=== PATIENT | female | born 1940 | race Caucasian/White ===

== ENCOUNTER 2016-06-04 14:36 | Inpatient (IN) | payer MEDICARE ==
[2016-06-04] MEDS ORDERED: ONDANSETRON 4 MG/2 ML VIAL IVP STA (15:01)
--- NOTE | 2016-06-04 15:10 | ED ---
Syncope HPI - General Chief Complaint: Syncope Stated Complaint: Bradycardia Time Seen by Provider: 06/04/16 14:40 Source: family (Son), EMS, RN notes reviewed Mode of arrival: EMS Limitations: altered mental status - History of Present Illness Initial Comments: This patient is a 76-year-old woman who presents to be evaluated after she had an episode in which she became somewhat unresponsive. The patient does appear somewhat confused, and the patient's son does give a lot of the history. He states that they had gone to have a meal at a restaurant. He states that they sat down and then his mother seemed to "blank out" for a period of multiple seconds possibly up to minutes, while EMS was called. She did not really respond to him but was not fully unconscious. When EMS arrived they told the patient's son that the patient's pulse rate was low. The patient subsequently became more alert and responsive but began having nausea and vomiting. Currently she is able to respond to direct questioning and states that she is not having any pain, and that she is not feeling short of breath. She does continue to have some nausea. MD Complaint: other -: minutes(s) Prodromal Symptoms: none -: minutes(s) Witnessed: yes - by bystander Injuries Sustained Associated with Event: None Current Symptoms: nausea Context: at rest - Related Data Home Medications Medication Instructions Recorded Confirmed Atenolol [Tenormin] 50 mg PO DAILY 05/03/16 06/04/16 Atorvastatin [Lipitor] 40 mg PO DAILY 05/03/16 06/04/16 Lisinopril 40 mg PO DAILY 05/03/16 06/04/16 glipiZIDE [Glucotrol] 5 mg PO AC-BID 05/03/16 06/04/16 Aspirin EC [Ecotrin Low Dose] 81 mg PO DAILY 06/04/16 06/04/16 Cyanocobalamin [Vitamin B-12] 500 mcg PO DAILY 06/04/16 06/04/16 Donepezil [Aricept] 10 mg PO HS 06/04/16 06/04/16 Memantine HCl [Namenda Xr] 14 mg PO DAILY 06/04/16 06/04/16 metFORMIN HCL [Glucophage] 1,000 mg PO BID 06/04/16 06/04/16 Allergies Allergy/AdvReac Type Severity Reaction Status Date / Time No Known Allergies Allergy Verified 06/04/16 15:26 Review of Systems ROS Statement: Those systems with pertinent positive or pertinent negative responses have been documented in the HPI. ROS Other: All systems not noted in ROS Statement are negative. Limitations: ROS unobtainable due to patients medical condition Constitutional: Reports: weakness Eyes: Denies: vision change Respiratory: Denies: cough, dyspnea Cardiovascular: Reports: as per HPI, syncope. Denies: chest pain, palpitations , edema Gastrointestinal: Reports: nausea, vomiting. Denies: abdominal pain, diarrhea, hematemesis, melena, hematochezia Musculoskeletal: Denies: back pain Neurological: Reports: weakness (Generalized). Denies: headache Past Medical History Past Medical History: Dementia, Diabetes Mellitus, Hypertension History of Any Multi-Drug Resistant Organisms: None Reported Past Surgical History: No Surgical Hx Reported Past Psychological History: No Psychological Hx Reported Smoking Status: Never smoker Past Alcohol Use History: None Reported Past Drug Use History: None Reported - Past Family History Father History Unknown: Yes Additional Family Medical History / Comment(s): of old age Mother History Unknown: Yes General Exam Limitations: no limitations General appearance: alert Head exam: Present: atraumatic, normocephalic Eye exam: Present: EOMI, other (Pupils are 3 mm bilaterally). Absent: scleral icterus, conjunctival injection ENT exam: Present: mucous membranes dry Neck exam: Present: normal inspection Respiratory exam: Present: rales (Bilateral bases). Absent: respiratory distress, wheezes, rhonchi, stridor Cardiovascular Exam: Present: regular rate, bradycardia (Rate approximate 48 bpm ), normal heart sounds. Absent: systolic murmur, diastolic murmur, rubs, gallop GI/Abdominal exam: Present: soft, diminished bowel sounds. Absent: tenderness, guarding, rebound, mass, pulsatile mass, hernia Extremities exam: Present: normal inspection, normal capillary refill. Absent: pedal edema, calf tenderness Back exam: Absent: CVA tenderness (R), CVA tenderness (L) Neurological exam: Present: alert, oriented X3. Absent: motor sensory deficit Skin exam: Present: warm, dry, intact, normal color. Absent: rash, cyanosis, diaphoretic, erythema, petechiae, pallor, mottled Course Vital Signs 06/04/16 06/04/16 06/04/16 14:47 15:50 16:55 Temperature 96.9 F L Pulse Rate 49 L 47 L 59 L Respiratory 18 18 18 Rate Blood Pressure 139/90 184/58 165/70 O2 Sat by Pulse 96 97 100 Oximetry 06/04/16 17:42 Temperature 97.9 F Pulse Rate 53 L Respiratory 18 Rate Blood Pressure 169/70 O2 Sat by Pulse 98 Oximetry EKG Findings - EKG Results: EKG: interpreted by ERMD, sinus rhythm, normal ST/T EKG shows: bradycardia (Rate approximately 57 bpm) - Blocks, [place], Hypertrophy, ST Abn: QRS axis and voltage: left axis deviation (-30 to -90) Chamber hypertrophy or enlargement: only voltage criteria for left ventricular hypertrophy Medical Decision Making - Lab Data Result diagrams: 06/04/16 15:15 06/04/16 15:15 Lab Results 06/04/16 06/04/16 06/04/16 Range/Units 15:15 15:15 15:15 WBC 6.4 (3.8-10.6) k/uL RBC 4.77 (3.80-5.40) m/uL Hgb 14.2 (11.4-16.0) gm/dL Hct 41.6 (34.0-46.0) % MCV 87.3 (80.0-100.0) fL MCH 29.7 (25.0-35.0) pg MCHC 34.0 (31.0-37.0) g/dL RDW 12.9 (11.5-15.5) % Plt Count 245 (150-450) k/uL Neutrophils % 56 % Lymphocytes % 32 % Monocytes % 4 % Eosinophils % 6 % Basophils % 1 % Neutrophils # 3.6 (1.3-7.7) k/uL Lymphocytes # 2.0 (1.0-4.8) k/uL Monocytes # 0.3 (0-1.0) k/uL Eosinophils # 0.4 (0-0.7) k/uL Basophils # 0.0 (0-0.2) k/uL Sodium 139 (137-145) mmol/L Potassium 3.8 (3.5-5.1) mmol/L Chloride 104 (98-107) mmol/L Carbon Dioxide 25 (22-30) mmol/L Anion Gap 10 mmol/L BUN 14 (7-17) mg/dL Creatinine 0.55 (0.52-1.04) mg/dL Est GFR (MDRD) Af Amer >60 (>60 ml/min/1.73 sqM) Est GFR (MDRD) Non-Af >60 (>60 ml/min/1.73 sqM) Glucose 197 H (74-99) mg/dL Calcium 9.5 (8.4-10.2) mg/dL Magnesium 1.8 (1.6-2.3) mg/dL Total Bilirubin 1.9 H (0.2-1.3) mg/dL AST 18 (14-36) U/L ALT 31 (9-52) U/L Alkaline Phosphatase 96 (38-126) U/L Total Creatine Kinase 25 L (30-135) U/L CK-MB (CK-2) 0.5 (0.0-2.4) ng/mL CK-MB (CK-2) Rel Index 2.0 Troponin I <0.012 (0.000-0.034) ng/mL Total Protein 6.6 (6.3-8.2) g/dL Albumin 3.8 (3.5-5.0) g/dL Disposition Clinical Impression: Episode of syncope Disposition: ADMITTED IP TO THIS HOSP Condition: Fair
[2016-06-04 15:28] LABS: Basophils % (A) 1 %; CH 30.9; CHCM 35.6; Eosinophils # (A) 0.4 k/uL (0-0.7); Eosinophils % (A) 6 %; HCT 41.6 % (34.0-46.0); HDW 3.02; HGB 14.2 gm/dL (11.4-16.0); Luc # (Auto) 0.12; Luc % (Auto) 2; Lymphocytes % (A) 32 %; MCH 29.7 pg (25.0-35.0); MCV 87.3 fL (80.0-100.0); Mean Platelet Volume 6.5; Monocytes # (A) 0.3 k/uL (0-1.0); Monocytes % (A) 4 %; Neutrophils # (A) 3.6 k/uL (1.3-7.7); Neutrophils % (A) 56 %; RBC 4.77 m/uL (3.80-5.40); RDW 12.9 % (11.5-15.5); WBC 6.4 k/uL (3.8-10.6); WBC (Perox) 6.42
[2016-06-04 15:39] LABS: ALT 31 U/L (9-52); AST 18 U/L (14-36); Alkaline Phosphatase 96 U/L (38-126); Anion Gap 10 mmol/L; Blood Urea Nitrogen 14 mg/dL (7-17); Calcium 9.5 mg/dL (8.4-10.2); Carbon Dioxide 25 mmol/L (22-30); Chloride 104 mmol/L (98-107); Glucose 197 mg/dL (74-99); Magnesium 1.8 mg/dL (1.6-2.3); Non-African American GFR(MDRD) >60 (>60 ml/min/1.73 sqM); Potassium 3.8 mmol/L (3.5-5.1); Sodium 139 mmol/L (137-145); Total Bilirubin 1.9 mg/dL (0.2-1.3); Total Protein 6.6 g/dL (6.3-8.2)
--- NOTE | 2016-06-04 15:40 | XR ---
EXAMINATION TYPE: XR chest 1V portable DATE OF EXAM: 06/04/2016 3:31 PM COMPARISON: NONE HISTORY: Syncope and weakness. TECHNIQUE: Single AP portable frontal upright view of the chest is obtained. FINDINGS: There is chronic senescent change without suspicious focal air space opacity, pleural effu zandra, or pneumothorax seen. The cardiac silhouette size is within normal limits. The osseous struc tures are demineralized. IMPRESSION: No acute process.
[2016-06-04 15:54] LABS: Creatine Kinase 25 U/L (30-135)
[2016-06-04 16:07] LABS: Creatine Kinase MB 0.5 ng/mL (0.0-2.4); Troponin I <0.012 ng/mL (0.000-0.034)
[2016-06-04] MEDS ORDERED: ONDANSETRON 4 MG/2 ML VIAL IVP PRN (17:07)
[2016-06-04] MEDS ORDERED: ACETAMINOPHEN TAB 325 MG TAB PO PRN (17:07)
[2016-06-04] MEDS ORDERED: NALOXONE 0.4 MG/ML 1 ML VIAL IV PRN (17:07)
[2016-06-04] MEDS: metFORMIN 500 MG TAB PO SCH (18:28)
[2016-06-04] MEDS: glipiZIDE 5 MG TAB PO SCH (18:28)
[2016-06-04] MEDS: SODIUM CHLORIDE 0.9% 1,000 ML IV SCH (18:29)
[2016-06-04 18:37] VITALS: BMI 30.9
[2016-06-04 19:55] LABS: Glucose,Whole Blood 213 mg/dL (75-99)
[2016-06-04] MEDS: FAMOTIDINE 20 MG TAB PO SCH (22:02)
[2016-06-04 22:42] VITALS: RESP 18
[2016-06-05] MEDS: DONEPEZIL 10 MG TAB PO SCH ×2 (00:45→22:03)
[2016-06-05 06:33] LABS: Glucose,Whole Blood 136 mg/dL (75-99)
[2016-06-05] MEDS: glipiZIDE 5 MG TAB PO SCH ×2 (06:49→17:09)
[2016-06-05] MEDS: metFORMIN 500 MG TAB PO SCH ×2 (06:49→17:09)
[2016-06-05] MEDS ORDERED: LISINOPRIL 20 MG TAB PO SCH (09:00)
[2016-06-05] MEDS: FAMOTIDINE 20 MG TAB PO SCH ×2 (09:10→22:03)
[2016-06-05] MEDS: MEMANTINE 5 MG TAB PO SCH ×2 (09:10→22:03)
[2016-06-05] MEDS: CYANOCOBALAMIN 500 MCG TAB PO SCH (10:46)
[2016-06-05] MEDS: ASPIRIN 81 MG CHEW PO SCH (10:46)
[2016-06-05] MEDS: ATORVASTATIN 40 MG TAB PO SCH (10:46)
[2016-06-05] MEDS ORDERED: LORazepam 1 MG TAB PO PRN (11:13)
[2016-06-05 11:44] LABS: Glucose,Whole Blood 131 mg/dL (75-99)
[2016-06-05 17:01] LABS: Glucose,Whole Blood 120 mg/dL (75-99)
[2016-06-05] MEDS: ENOXAPARIN 40 MG/0.4 ML SYRINGE SQ SCH (17:19)
[2016-06-05] MEDS: amLODIPine 5 MG TAB PO SCH (17:19)
[2016-06-05] MEDS: SODIUM CHLORIDE 0.9% 1,000 ML IV SCH (17:27)
--- NOTE | 2016-06-05 17:56 | HP ---
DATE OF ADMISSION: 06/04/2016 PRESENTING COMPLAINT: Passed out. HISTORY OF PRESENTING COMPLAINT: This is a 76-year-old patient of Dr. Martinez whose chronic stable medical conditions include dementia, Alzheimer's type, hypertension; as per her son's report in the ER, patient had gone to a restaurant with her son and patient passed out, was not entirely unresponsive but had decreased responsiveness for a good minute. Heart rate was down; actually reported to be about 30. Patient has been getting increasingly forgetful. Patient also does give a story about a 15-year-old girl mixing medications. It may be noted that patient has been on Lopressor, for which she has been admitted. Patient does use a walker; is not the most detailed historian. REVIEW OF SYSTEMS: CONSTITUTIONAL: None. HEENT: None. RESPIRATORY: None. CARDIOVASCULAR: None. GASTROINTESTINAL: None. GENITOURINARY: None. MUSCULOSKELETAL: None. DERMATOLOGICAL: None. HEMATOLOGICAL: None. LYMPHATIC: None. PSYCHIATRY: Forgetful. NEUROLOGICAL: No focal weakness. No seizure activity reported. PAST MEDICAL HISTORY: 1. Dementia. 2. Diabetes mellitus, type 2. 3. Hypertension. PAST SURGICAL HISTORY: None. SOCIAL HISTORY: . Does not smoke. No alcohol. FAMILY HISTORY: Reviewed; noncontributory to presentation. HOME MEDICATIONS: 1. Vitamin B12 500 mcg a day. 2. Metformin 1000 mg p.o. b.i.d. 3. Glucotrol 5 mg p.o. b.i.d. 4. Namenda XR 14 mg a day. 5. Lisinopril 40 mg a day. 6. Aricept 10 mg p.o. at bedtime. 7. Lipitor 40 mg a day. 8. Tenormin 50 mg a day. 9. Aspirin 81 mg a day. ALLERGIES: NONE. On examination, temperature 97.9, pulse 72, respiration 16, blood pressure 140/73, pulse ox 96% on room air. GENERAL APPEARANCE: Average build. Lying in bed. Not in distress. EYES: Pupils equal. Conjunctivae normal. HEENT: External appearance of nose and ears normal. Oral normal. NECK: JVD not raised. Mass not palpable. RESPIRATORY: Effort normal. Lungs are clear. CARDIOVASCULAR: First and second sounds normal. No edema. ABDOMEN: Soft, nontender. Liver and spleen not palpable. LYMPHATIC: No lymph node palpable in neck or axillae. PSYCHIATRY: Patient answering some simple questions. Mood and affect normal. NEUROLOGICAL: Pupils equal. Cranial nerves grossly intact. Power and sensation grossly intact. INVESTIGATIONS: White count 6.4, hemoglobin 14.2, platelets normal. Potassium 3.8. BUN and creatinine are normal. Troponin x3 negative. EKG shows sinus bradycardia. ASSESSMENT: 1. Episode of unresponsiveness from severe bradycardia. Given patient's underlying dementia, patient may have taken too much beta milton. This needs to be monitored closely. 2. Alzheimer's dementia, late onset, with no evidence of psychosis. 3. Diabetes mellitus, type 2, on oral hypoglycemic. 4. Essential hypertension. PLAN: Beta milton has been held. Home medications are resumed. For blood pressure control, will add amlodipine. If the heart rate comes up, patient will need no further intervention. Will give subcutaneous heparin for DVT prophylaxis. No family is at the bedside.
[2016-06-05 20:42] LABS: Glucose,Whole Blood 110 mg/dL (75-99)
[2016-06-05] MEDS: LISINOPRIL-HCTZ 20-12.5 MG 1 EACH TAB PO SCH (22:10)
[2016-06-06 06:04] LABS: Appearance,Urine Clear (Clear); Bacteria,Urine Rare /hpf; Bilirubin,Urine Negative (Negative); Glucose,Urine (UA) Negative (Negative); Ketones,Urine Negative (Negative); Leukocyte Esterase,Urine Small (Negative); Nitrite,Urine Negative (Negative); Particle Count 1021; Protein,Urine Negative (Negative); RBC,Urine 1 /hpf (0-5); Specific Gravity,Urine 1.005 (1.001-1.035); Squamous Epithelial Cell,Urine 1 /hpf (0-4); UA Billing (MACRO vs. MICRO) MICRO; Urobilinogen,Urine <2.0 mg/dL (<2.0); WBC,Urine 4 /hpf (0-5)
[2016-06-06 06:23] LABS: Glucose,Whole Blood 89 mg/dL (75-99)
--- NOTE | 2016-06-06 09:15 | P.CRDCN ---
History of Present Illness Consult date: 06/06/16 Requesting physician: Antwon Mann Consult reason: sycope Chief complaint: Syncope History of present illness: This is a 76-year-old female patient with history of hypertension, diabetes, hyperlipidemia, family history of premature coronary artery disease, patient also has history of stent placement. History was obtained from the son who is at bedside, patient has also had was dementia. Patient was brought to the hospital because of a syncopal episode. Apparently the patient was out at a restaurant for dinner with her son, developed a severe headache and shortly thereafter fell over to the side and passed out. Patient is on beta milton at home and there was some question as to whether she may have taken an extra dose earlier that day. On EMS arrival the heart rate was 40. The son also stated that the patient has some history of a brain tumor several years ago exact details unavailable. CAT scan of the brain was performed on arrival here which did not reveal any evidence of acute intracranial process or enhancing lesion. EKG shows normal sinus rhythm with no acute changes. Heart rate 68 on arrival. Chest x-ray did not reveal any acute process. Blood pressure on arrival to the emergency room at 213/101. Blood Pressure this morning 143/70, heart rate in the 50s. Lab data, CBC normal, potassium 3.8, BUN 14, creatinine 0.5. Troponins 0.0123. Orthostatics were obtained which were negative. At the time of my examination this morning, patient is a very difficult to arouse, very sleepy. Confused. Past Medical History Past Medical History: Dementia, Diabetes Mellitus, Hypertension History of Any Multi-Drug Resistant Organisms: None Reported Past Surgical History: No Surgical Hx Reported Past Anesthesia/Blood Transfusion Reactions: No Reported Reaction Past Psychological History: No Psychological Hx Reported Smoking Status: Never smoker Past Alcohol Use History: None Reported Past Drug Use History: None Reported - Past Family History Father History Unknown: Yes Additional Family Medical History / Comment(s): of old age Mother History Unknown: Yes Medications and Allergies Home Medications Medication Instructions Recorded Confirmed Type Atenolol [Tenormin] 50 mg PO DAILY 05/03/16 06/04/16 History Atorvastatin [Lipitor] 40 mg PO DAILY 05/03/16 06/04/16 History Lisinopril 40 mg PO DAILY 05/03/16 06/04/16 History glipiZIDE [Glucotrol] 5 mg PO AC-BID 05/03/16 06/04/16 History Aspirin EC [Ecotrin Low Dose] 81 mg PO DAILY 06/04/16 06/04/16 History Cyanocobalamin [Vitamin B-12] 500 mcg PO DAILY 06/04/16 06/04/16 History Donepezil [Aricept] 10 mg PO HS 06/04/16 06/04/16 History Memantine HCl [Namenda Xr] 14 mg PO DAILY 06/04/16 06/04/16 History metFORMIN HCL [Glucophage] 1,000 mg PO BID 06/04/16 06/04/16 History Allergies Allergy/AdvReac Type Severity Reaction Status Date / Time No Known Allergies Allergy Verified 06/04/16 15:26 Physical Exam Vitals: Vital Signs Temp Pulse Resp BP BP BP Pulse Ox 06/06/16 04:00 97 F L 52 L 18 143/70 95 06/06/16 00:00 97.6 F 62 18 162/68 97 06/05/16 20:00 97.5 F L 63 18 164/79 93 L 06/05/16 16:00 98.0 F 85 16 145/70 95 06/05/16 12:00 97.9 F 72 16 198/100 95 Intake and Output 06/05/16 06/06/16 06/06/16 22:59 06:59 14:59 Intake Total 355 100 Output Total 800 Balance 355 -700 Intake: Intake, IV Titration 0 Amount Sodium Chloride 0.9% 1, 0 000 ml @ 20 mls/hr IV . Q24H [facility] Rx#:[id number] Oral 355 100 Output: Urine 800 Other: # Voids 1 Weight 91.1 kg PHYSICAL EXAMINATION: HEENT: Head is atraumatic, normocephalic. Pupils equal, round. Neck is supple. There is no elevated jugular venous pressure. HEART EXAMINATION: Heart S1 and S2 systolic murmur is heard. CHEST EXAMINATION: Lungs are clear to auscultation and precussion. No chest wall tenderness is noted on palpation or with deep breathing. ABDOMEN: Soft, nontender. Bowel sounds are heard. No organomegaly noted. EXTREMITIES: 2+ peripheral pulses with no evidence of peripheral edema and no calf tenderness noted. NEUROLOGIC [patient is sleepy, confused . Results 06/04/16 15:15 06/04/16 15:15 Current Medications Generic Name Dose Route Start Last Admin Trade Name Marisela PRN Reason Stop Dose Admin Acetaminophen 650 mg 06/04/16 17:07 Tylenol Tab PO Q6HR PRN Mild Pain or Fever > 100.5 Amlodipine Besylate 5 mg 06/05/16 15:00 06/05/16 17:19 Norvasc PO Not Given DAILY [facility]INE Aspirin 81 mg 06/05/16 09:00 06/05/16 10:46 Aspirin PO 81 mg DAILY MARINE Administration Atorvastatin Calcium 40 mg 06/05/16 09:00 06/05/16 10:46 Lipitor PO 40 mg DAILY MARINE Administration Cyanocobalamin 500 mcg 06/05/16 09:00 06/05/16 10:46 Vitamin B-12 PO 500 mcg DAILY MARINE Administration Donepezil HCl 10 mg 06/04/16 21:00 06/05/16 22:03 Aricept PO 10 mg HS MARINE Administration Enoxaparin Sodium 40 mg 06/05/16 15:00 06/05/16 17:19 Lovenox SQ Not Given DAILY MARINE Famotidine 20 mg 06/04/16 21:00 06/05/16 22:03 Pepcid PO 20 mg BID MARINE Administration Glipizide 5 mg 06/04/16 17:30 06/05/16 17:09 Glucotrol PO 5 mg AC-BID MARINE Administration Lisinopril/HCTZ 1 each 06/05/16 21:00 06/05/16 22:10 Zestoretic 20-12.5 PO 1 each BID MARINE Administration Sodium Chloride 1,000 mls @ 20 mls/hr 06/04/16 17:15 06/05/16 17:27 Saline 0.9% IV Not Given .Q24H [facility]INE Lorazepam 1 mg 06/05/16 11:13 Ativan PO Q8HR PRN Agitation or Acute Anxiety Memantine 5 mg 06/05/16 09:00 06/05/16 22:03 Namenda PO 5 mg BID MARINE Administration Metformin HCl 1,000 mg 06/04/16 18:00 06/05/16 17:09 Glucophage PO 1,000 mg BID-W/MEALS MARINE Administration Naloxone HCl 0.2 mg 06/04/16 17:07 Narcan IV Q2M PRN Opioid Reversal Ondansetron HCl 4 mg 06/04/16 17:07 Zofran IVP Q8HR PRN Nausea And Vomiting Intake and Output 06/05/16 06/06/16 06/06/16 22:59 06:59 14:59 Intake Total 355 100 Output Total 800 Balance 355 -700 Intake: Intake, IV Titration 0 Amount Sodium Chloride 0.9% 1, 0 000 ml @ 20 mls/hr IV . Q24H [facility] Rx#:[id number] Oral 355 100 Output: Urine 800 Other: # Voids 1 Weight 91.1 kg EKG Interpretations (text) EKG shows normal sinus rhythm with no acute changes. Assessment and Plan Plan: Assessment and plan #1 syncope, rule out Cardiac causes. Orthostatics negative. EKG normal sinus rhythm with no acute changes. #2 hypertension, blood pressure 213/101 on arrival. #3 diabetes #4 hypertension # 5 hyperlipidemia #6 CAD with prior stent placement #7 Alzheimer's dementia Plan Will obtain an echocardiogram with Doppler study. Continue to monitor for any tachycardia or bradycardia arrhythmias. Further recommendations to follow. DNP note has been reviewed, I agree with a documented findings and plan of care. Patient was seen and examined.
[2016-06-06] MEDS: MEMANTINE 5 MG TAB PO SCH ×2 (09:38→23:34)
[2016-06-06] MEDS: ENOXAPARIN 40 MG/0.4 ML SYRINGE SQ SCH (09:38)
[2016-06-06] MEDS: CYANOCOBALAMIN 500 MCG TAB PO SCH (09:38)
[2016-06-06] MEDS: ASPIRIN 81 MG CHEW PO SCH (09:38)
[2016-06-06] MEDS: ATORVASTATIN 40 MG TAB PO SCH (09:38)
[2016-06-06] MEDS: amLODIPine 5 MG TAB PO SCH (09:38)
[2016-06-06] MEDS: FAMOTIDINE 20 MG TAB PO SCH ×2 (09:38→23:34)
[2016-06-06] MEDS: LISINOPRIL-HCTZ 20-12.5 MG 1 EACH TAB PO SCH ×2 (09:38→23:34)
[2016-06-06] MEDS: glipiZIDE 5 MG TAB PO SCH ×2 (09:50→23:33)
[2016-06-06 11:43] LABS: Glucose,Whole Blood 126 mg/dL (75-99)
--- NOTE | 2016-06-06 11:46 | ECHOF ---
Referral Reason:syncope MEASUREMENTS -------- HEIGHT: 172.7 cm WEIGHT: 90.7 kg BP: IVSd: 1.5 cm (0.6 - 1.1) LVIDd: 4.1 cm (3.9 - 5.3) LVPWd: 1.1 cm (0.6 - 1.1) IVSs: 1.6 cm LVIDs: 3.6 cm LVPWs: 1.2 cm LA Diam: 3.7 cm (2.7 - 3.8) LAESV Index (A-L): 26.51 ml/m Ao Diam: 3.3 cm (2.0 - 3.7) AV Cusp: 2.0 cm (1.5 - 2.6) LA Diam: 4.2 cm (2.7 - 3.8) MV EXCURSION: 20.477 mm (> 18.000) MV EF SLOPE: 58 mm/s (70 - 150) EPSS: 0.4 cm MV E Luke: 0.74 m/s MV DecT: 237 ms MV A Luke: 1.02 m/s MV E/A Ratio: 0.73 RAP: 5.00 mmHg RVSP: 16.08 mmHg FINDINGS -------- Undetermined rhythm. This was a technically difficult study with suboptimal views. There is moderate concentric left ventricular hypertrophy. Overall left ventricular systolic function is low-normal with, an EF between 50 - 55 %. The right ventricle is normal in size. Normal LA size by volume 22+/-6 ml/m2. The right atrial size is normal. There is mild aortic valve sclerosis. There is no evidence of aortic regurgitation. Mild mitral annular calcification present. Mild mitral regurgitation is present. Mild tricuspid regurgitation present. There is no evidence of pulmonary hypertension. The right ventricular systolic pressure, as measured by Doppler, is 16.08mmHg. There is no pulmonic regurgitation present. The aortic root size is normal. There is no pericardial effusion. CONCLUSIONS -------- 1. There is moderate concentric left ventricular hypertrophy. 2. Overall left ventricular systolic function is low-normal with, an EF between 50 - 55 %. 3. There is mild aortic valve sclerosis. 4. Mild mitral annular calcification present. 5. Mild mitral regurgitation is present. 6. Mild tricuspid regurgitation present. 7. There is no evidence of pulmonary hypertension. 8. The right ventricular systolic pressure, as measured by Doppler, is 16.08mmHg. ASSISTANT READING TEACHER: Blanca Tee RDCS
[2016-06-06] MEDS: metFORMIN 500 MG TAB PO SCH ×2 (12:33→23:33)
[2016-06-06 16:41] LABS: Glucose,Whole Blood 149 mg/dL (75-99)
[2016-06-06 21:07] LABS: Glucose,Whole Blood 194 mg/dL (75-99)
--- NOTE | 2016-06-06 22:37 | PN ---
DATE OF SERVICE: 06/06/2016 PRESENTING COMPLAINT: Syncope. INTERVAL HISTORY: This patient presented with severe bradycardia, causing the patient to pass out, possibly related to too much medications. Patient had underlying dementia. Family is present at bedside. Lower dose will be started off. Patient's heart rate did get into 110s earlier, although remained in sinus rhythm. Review of systems done for constitutional, cardiovascular, GI, pulmonary; relevant findings as above. Current medications are reviewed. On examination, temperature 96.8, pulse 109, respiration 18, blood pressure 177/77, pulse ox 95% on room air. GENERAL APPEARANCE: Sitting up, comfortable. EYES: Pupils equal. Conjunctivae normal. NECK: JVD not raised. Mass not palpable. RESPIRATORY: Effort normal. Lungs are clear. CARDIOVASCULAR: First and second sounds normal. No edema. ABDOMEN: Soft, nontender. PSYCH: Answering simple questions. INVESTIGATIONS: Telemetry shows sinus rhythm. Accu-Cheks are noted. ASSESSMENT: 1. Unresponsive from severe bradycardia from probably excessive beta milton dose. 2. Alzheimer dementia, late onset, with no evidence of psychosis. 3. Diabetes mellitus type 2 on oral hypoglycemic. 4. Essential hypertension. 5. Hypertensive heart disease per echocardiogram. PLAN: Dose of beta milton has been added. Patient should remain on Norvasc. Care was discussed with the family. If blood pressure remains controlled, patient could be discharge tomorrow on current medication. Patient of course has to have all medications closely supervised. 7
[2016-06-06] MEDS: METOPROLOL TARTRATE 25 MG TAB PO SCH (23:32)
[2016-06-06] MEDS: DONEPEZIL 10 MG TAB PO SCH (23:34)
[2016-06-07] MEDS: metFORMIN 500 MG TAB PO SCH (07:07)
[2016-06-07] MEDS: glipiZIDE 5 MG TAB PO SCH (07:07)
[2016-06-07 07:08] LABS: Glucose,Whole Blood 92 mg/dL (75-99)
[2016-06-07 08:19] VITALS: PULSE 65
[2016-06-07] MEDS: CYANOCOBALAMIN 500 MCG TAB PO SCH (08:29)
[2016-06-07] MEDS: LISINOPRIL-HCTZ 20-12.5 MG 1 EACH TAB PO SCH (08:29)
[2016-06-07] MEDS: amLODIPine 5 MG TAB PO SCH (08:30)
[2016-06-07] MEDS: FAMOTIDINE 20 MG TAB PO SCH (08:30)
[2016-06-07] MEDS: MEMANTINE 5 MG TAB PO SCH (08:30)
[2016-06-07] MEDS: ATORVASTATIN 40 MG TAB PO SCH (08:30)
[2016-06-07] MEDS: ASPIRIN 81 MG CHEW PO SCH (08:30)
[2016-06-07] MEDS: METOPROLOL TARTRATE 25 MG TAB PO SCH (08:32)
[2016-06-07] MEDS: ENOXAPARIN 40 MG/0.4 ML SYRINGE SQ SCH (09:31)
[2016-06-07 11:32] LABS: Glucose,Whole Blood 96 mg/dL (75-99)
[2016-06-07 12:14] VITALS: BP 123/67; TEMP 97
--- NOTE | 2016-06-07 21:59 | DS ---
DATE OF ADMISSION: 06/04/2016 DATE OF DISCHARGE: 06/07/2016 FINAL DIAGNOSES: 1. Severe bradycardia, causing unresponsiveness. 2. Alzheimer dementia, late onset, with no evidence of psychosis. 3. Diabetes mellitus type 2 on oral hyperglycemic. 4. Essential hypertension. 5. Hypertensive heart disease. HOSPITAL COURSE: This patient presented with passing out, found to be in severe bradycardia. Because of dementia, she may have taken extra pills. Her dose was cut back. Patient doing much better on day of discharge. Care was discussed with the patient and her son. Patient is going to move in with her son. A 2-D echocardiogram was done. CONSULTATION: Dr. Kennedy from cardiology. On exam, lungs are clear. CARDIOVASCULAR: First and second seconds are normal. DISCHARGE MEDICATIONS: 1. Lipitor 40 mg daily. 2. Glucotrol 5 mg p.o. b.i.d. 3. Aspirin 81 mg a day. 4. Vitamin B12 500 mcg a day. 5. Aricept 10 mg q.h.s. 6. Namenda XR 40 mg a day. 7. Glucophage 1000 mg b.i.d. 8. Ativan 0.5 p.o. t.i.d. p.r.n. 9. Zestoretic 20/12.5, 1 tablet p.o. b.i.d. 10. Melatonin 3 mg p.o. q.h.s. 11. Lopressor 25 mg p.o. b.i.d. 12. Norvasc 5 mg p.o. daily. Follow up with Dr. Franc Martinez in 1 week.
== END 2016-06-07 15:34 | disposition home health service (06) | DRG 918 ==
LOC: EC 14:36 → 6SEL 17:07
PROVIDERS: ADMIT Hospitalist; ATTEND Hospitalist
DX: T50.991A Poisoning by other drugs, medicaments and biological substances, accidental (unintentional), initial encounter (principal); E11.8 Type 2 diabetes mellitus with unspecified complications; I11.9 Hypertensive heart disease without heart failure; R00.1 Bradycardia, unspecified; G30.1 Alzheimer's disease with late onset; F02.80 Dementia in other diseases classified elsewhere, unspecified severity, without behavioral disturbance, psychotic disturbance, mood disturbance, and anxiety; E78.5 Hyperlipidemia, unspecified; I25.10 Atherosclerotic heart disease of native coronary artery without angina pectoris; R55 Syncope and collapse; Z79.82 Long term (current) use of aspirin; Z79.899 Other long term (current) drug therapy; Z95.5 Presence of coronary angioplasty implant and graft; Z82.49 Family history of ischemic heart disease and other diseases of the circulatory system; W19.XXXA Unspecified fall, initial encounter; Y92.511 Restaurant or cafe as the place of occurrence of the external cause
CPT/HCPCS: 36415; 71010; 80053; 81001; 82550; 82553; 83735; 84484; 85025; 93005; 93306; 96374; 99285

== ENCOUNTER 2016-06-24 21:30 | Emergency (ER) | payer MEDICARE ==
[2016-06-24 21:43] VITALS: BP 130/66; PULSE 76; RESP 18; TEMP 98.1
--- NOTE | 2016-06-24 21:57 | ED ---
General Adult HPI - General Chief complaint: Headache Stated complaint: rt side head pain Time Seen by Provider: 06/24/16 21:40 Source: patient, RN notes reviewed Mode of arrival: ambulatory Limitations: no limitations - History of Present Illness Initial comments: This is a 76-year-old female who presents to the emergency department because she has had multiple sharp pains to the left parietal region of her head just lateral of midline. Patient denies any visual disturbance patient deniesdisturbance. Patient states that sharp pain lasts for just seconds and goes away. Patient denies any dizziness lightheadedness or near syncope episode. Patient denies any syncope. Patient denies any chest pain or palpitations. Patient denies any recent fever chills or cough. Patient states feels like she bumped her head on something because it's tender to touch and has a small bump. Patient states she does not remember hitting anything though. Patient denies any recent fever or chills or illness recently. Currently patient is having no pain. - Related Data Home Medications Medication Instructions Recorded Confirmed Atorvastatin [Lipitor] 40 mg PO DAILY 05/03/16 06/24/16 glipiZIDE [Glucotrol] 5 mg PO AC-BID 05/03/16 06/24/16 Aspirin EC [Ecotrin Low Dose] 81 mg PO DAILY 06/04/16 06/24/16 Cyanocobalamin [Vitamin B-12] 500 mcg PO DAILY 06/04/16 06/24/16 Donepezil [Aricept] 10 mg PO QAM 06/04/16 06/24/16 metFORMIN HCL [Glucophage] 1,000 mg PO BID 06/04/16 06/24/16 Lisinopril-Hctz 20-12.5 mg 1 tab PO BID 06/24/16 06/24/16 [Zestoretic 20-12.5] Melatonin 3 mg PO HS 06/24/16 06/24/16 Previous Rx's Medication Instructions Recorded Metoprolol Tartrate [Lopressor] 25 mg PO BID #60 tab 06/07/16 amLODIPine [Norvasc] 5 mg PO DAILY #30 tab 06/07/16 Allergies Allergy/AdvReac Type Severity Reaction Status Date / Time No Known Allergies Allergy Verified 06/24/16 21:47 Review of Systems ROS Statement: Those systems with pertinent positive or pertinent negative responses have been documented in the HPI. ROS Other: All systems not noted in ROS Statement are negative. Past Medical History Past Medical History: Dementia, Diabetes Mellitus, Hypertension History of Any Multi-Drug Resistant Organisms: None Reported Past Surgical History: No Surgical Hx Reported Past Anesthesia/Blood Transfusion Reactions: No Reported Reaction Past Psychological History: No Psychological Hx Reported Smoking Status: Never smoker Past Alcohol Use History: None Reported Past Drug Use History: None Reported - Past Family History Father History Unknown: Yes Additional Family Medical History / Comment(s): of old age Mother History Unknown: Yes General Exam - General Exam Comments Initial Comments: GENERAL: Patient is well-developed and well-nourished. Patient is nontoxic and well- hydrated and is in no acute distress. ENT: Neck is soft and supple. No significant lymphadenopathy is noted. Oropharynx is clear. Moist mucous membranes. Neck has full range of motion without eliciting any pain. The scalp is tender to touch and one small 1 cm area that area is red and slightly raised. There is no temporal artery tenderness. EYES: The sclera were anicteric and conjunctiva were pink and moist. Extraocular movements were intact and pupils were equal round and reactive to light. Eyelids were unremarkable. PULMONARY: Unlabored respirations. Good breath sounds bilaterally. No audible rales rhonchi or wheezing was noted. CARDIOVASCULAR: There is a regular rate and rhythm without any murmurs gallops or rubs. ABDOMEN: Soft and nontender with normal bowel sounds. No palpable organomegaly was noted. There is no palpable pulsatile mass. SKIN: Skin is clear with no lesions or rashes and otherwise unremarkable. NEUROLOGIC: Patient is alert and oriented x3. Cranial nerves II through XII are grossly intact. Motor and sensory are also intact. Normal speech, volume and content. Symmetrical smile. MUSCULOSKELETAL: Normal extremities with adequate strength and full range of motion. No lower extremity swelling or edema. No calf tenderness. LYMPHATICS: No significant lymphadenopathy is noted PSYCHIATRIC: Normal psychiatric evaluation. Limitations: no limitations Course Vital Signs 06/24/16 21:39 Temperature 98.1 F Pulse Rate 76 Respiratory 18 Rate Blood Pressure 130/66 O2 Sat by Pulse 96 Oximetry Medical Decision Making - Medical Decision Making I went back into reevaluate the patient she remained pain-free. Computed tomography scan showed no acute abnormality. Disposition Clinical Impression: Scalp tenderness Disposition: HOME SELF-CARE Condition: Good Instructions: Scalp Contusion in Adults (ED) Referrals: Be Martinez MD [Primary Care Provider] - 1-2 days Time of Disposition: 22:37
--- NOTE | 2016-06-24 22:35 | CT ---
EXAMINATION TYPE: CT brain wo con DATE OF EXAM: 06/24/2016 10:13 PM COMPARISON: 07/22/2014 CT brain HISTORY: Pt states of left side occipital pain. No known injury. CT DLP: 947.6 mGycm Automated exposure control for dose reduction was used. FINDINGS: There is no acute intracranial hemorrhage, mass effect, or midline shift identified. Age-related atro phic changes are noted in the brain with prominent ventricles and cortical sulci. Benign falx calcifi cation is noted on the anterior aspect. Chronic white matter ischemic changes are noted in the perive ntricular white matter and basal ganglia with old lacunar type infarctions. The globes are intact and the visualized sinuses are clear. IMPRESSION: No acute intracranial hemorrhage, mass effect, or midline shift is seen. Age related atrophic changes and periventricular white matter ischemic changes. No significant interval change.
== END 2016-06-24 22:39 | disposition home or self-care (01) ==
LOC: EC 21:30
DX: S00.03XA Contusion of scalp, initial encounter (principal); I10 Essential (primary) hypertension; E11.9 Type 2 diabetes mellitus without complications; F03.90 Unspecified dementia, unspecified severity, without behavioral disturbance, psychotic disturbance, mood disturbance, and anxiety; Z79.82 Long term (current) use of aspirin; Z79.84 Long term (current) use of oral hypoglycemic drugs; Z79.899 Other long term (current) drug therapy; X58.XXXA Exposure to other specified factors, initial encounter
CPT/HCPCS: 70450; 99284

== ENCOUNTER 2016-08-06 13:02 | Inpatient (IN) | payer MEDICARE ==
[2016-08-06] MEDS ORDERED: SODIUM CHLORIDE 0.9% 1,000 ML IV STA (13:13)
--- NOTE | 2016-08-06 13:21 | ED ---
General Adult HPI - General Stated complaint: near syncope Time Seen by Provider: 08/06/16 13:02 Source: RN notes reviewed - History of Present Illness Initial comments: This is a 76-year-old female who presents emergency Department stating that she had diarrhea all day yesterday and today she became very nauseated and vomited times one. Patient states she also passed out times one because every time she states she's very lightheaded. Patient denies any chest pain or palpitations. Patient denies any shortness of breath or difficulty breathing. According to EMS when they arrived very lethargic. Patient remains very lethargic and slow to respond. Patient however is alert and oriented. Patient denies headache patient denies numbness weakness. Patient denies any abdominal pain. Patient states she still is nauseated. Patient denies back pain. Patient denies any dysuria hematuria urinary frequency. According to EMS the patient was in the mid 40s at times for a heart rate - Related Data Home Medications Medication Instructions Recorded Confirmed Atorvastatin [Lipitor] 40 mg PO DAILY 05/03/16 08/06/16 glipiZIDE [Glucotrol] 5 mg PO AC-BID 05/03/16 08/06/16 Aspirin EC [Ecotrin Low Dose] 81 mg PO DAILY 06/04/16 08/06/16 Cyanocobalamin [Vitamin B-12] 500 mcg PO DAILY 06/04/16 08/06/16 Donepezil [Aricept] 10 mg PO HS 06/04/16 08/06/16 metFORMIN HCL [Glucophage] 1,000 mg PO BID 06/04/16 08/06/16 Lisinopril-Hctz 20-12.5 mg 1 tab PO BID 06/24/16 08/06/16 [Zestoretic 20-12.5] Acetaminophen Tab [Tylenol Tab] 650 mg PO Q6H PRN 08/06/16 08/06/16 Cholecalciferol [Vitamin D3] 2,000 unit PO DAILY 08/06/16 08/06/16 LORazepam [Ativan] 0.5 mg PO DAILY PRN 08/06/16 08/06/16 Memantine HCl [Namenda Xr] 14 mg PO DAILY 08/06/16 08/06/16 Sertraline HCl [Zoloft] 25 mg PO DAILY 08/06/16 08/06/16 amLODIPine [Norvasc] 5 mg PO HS 08/06/16 08/06/16 Previous Rx's Medication Instructions Recorded Metoprolol Tartrate [Lopressor] 25 mg PO BID #60 tab 06/07/16 Allergies Allergy/AdvReac Type Severity Reaction Status Date / Time No Known Allergies Allergy Verified 08/06/16 14:11 Review of Systems ROS Statement: Those systems with pertinent positive or pertinent negative responses have been documented in the HPI. ROS Other: All systems not noted in ROS Statement are negative. Past Medical History Past Medical History: Dementia, Diabetes Mellitus, Hypertension History of Any Multi-Drug Resistant Organisms: None Reported Past Surgical History: No Surgical Hx Reported Past Anesthesia/Blood Transfusion Reactions: No Reported Reaction Past Psychological History: No Psychological Hx Reported Smoking Status: Never smoker Past Alcohol Use History: None Reported Past Drug Use History: None Reported - Past Family History Father History Unknown: Yes Additional Family Medical History / Comment(s): of old age Mother History Unknown: Yes General Exam - General Exam Comments Initial Comments: GENERAL: Patient is well-developed and well-nourished. Patient is nontoxic and well- hydrated and is in moderate distress. Patient is very lethargic. ENT: Neck is soft and supple. No significant lymphadenopathy is noted. Oropharynx is clear. Moist mucous membranes. Neck has full range of motion without eliciting any pain. EYES: The sclera were anicteric and conjunctiva were pink and moist. Extraocular movements were intact and pupils were equal round and reactive to light. Eyelids were unremarkable. PULMONARY: Unlabored respirations. Good breath sounds bilaterally. No audible rales rhonchi or wheezing was noted. CARDIOVASCULAR: Patient is bradycardic at about 50 bpm. ABDOMEN: Soft and nontender with normal bowel sounds. No palpable organomegaly was noted. There is no palpable pulsatile mass. SKIN: Skin is clear with no lesions or rashes and otherwise unremarkable. NEUROLOGIC: Patient is alert and oriented x3. Cranial nerves II through XII are grossly intact. Motor and sensory are also intact. Normal speech, volume and content. Symmetrical smile. MUSCULOSKELETAL: Normal extremities with adequate strength and full range of motion. No lower extremity swelling or edema. No calf tenderness. LYMPHATICS: No significant lymphadenopathy is noted PSYCHIATRIC: Normal psychiatric evaluation. Course Vital Signs 08/06/16 08/06/16 13:10 14:25 Temperature 96.9 F L Pulse Rate 51 L 51 L Pulse Rate [ 51 L Right Pulse Oximetery] Respiratory 18 16 Rate Blood Pressure 132/59 126/58 O2 Sat by Pulse 100 100 Oximetry Medical Decision Making - Medical Decision Making EKG shows marked bradycardia at 49 bpm MO interval is 152 QRS is 104 QT interval 5 away QTC is 458. Patient's EKG shows no ST segment elevation or depression or T-wave abdomen is noted. Patient's heart rate would dip into the mid 40s at times. Patient had a chest x -ray done and showed no acute abnormality. I went back in after patient received some fluid and had been here about an hour and a half patient looked and felt considerably better. - Lab Data Result diagrams: 08/06/16 13:30 08/06/16 13:30 Lab Results 08/06/16 08/06/16 08/06/16 Range/Units 13:30 13:30 13:30 WBC 7.6 (3.8-10.6) k/uL RBC 4.56 (3.80-5.40) m/uL Hgb 13.9 (11.4-16.0) gm/dL Hct 42.0 (34.0-46.0) % MCV 92.1 (80.0-100.0) fL MCH 30.4 (25.0-35.0) pg MCHC 33.0 (31.0-37.0) g/dL RDW 13.7 (11.5-15.5) % Plt Count 247 (150-450) k/uL Neutrophils % 74 % Lymphocytes % 18 % Monocytes % 4 % Eosinophils % 2 % Basophils % 1 % Neutrophils # 5.6 (1.3-7.7) k/uL Lymphocytes # 1.3 (1.0-4.8) k/uL Monocytes # 0.3 (0-1.0) k/uL Eosinophils # 0.1 (0-0.7) k/uL Basophils # 0.1 (0-0.2) k/uL PT (9.0-12.0) sec INR (<1.1) APTT (22.0-30.0) sec Sodium 140 (137-145) mmol/L Potassium 4.6 (3.5-5.1) mmol/L Chloride 101 (98-107) mmol/L Carbon Dioxide 27 (22-30) mmol/L Anion Gap 12 mmol/L BUN 28 H (7-17) mg/dL Creatinine 1.03 (0.52-1.04) mg/dL Est GFR (MDRD) Af Amer >60 (>60 ml/min/1.73 sqM) Est GFR (MDRD) Non-Af 52 (>60 ml/min/1.73 sqM) Glucose 191 H (74-99) mg/dL POC Glucose (mg/dL) (75-99) mg/dL POC Glu Clinical Data Programmer ID Calcium 9.5 (8.4-10.2) mg/dL Magnesium 1.4 L (1.6-2.3) mg/dL Total Bilirubin 1.6 H (0.2-1.3) mg/dL AST 24 (14-36) U/L ALT 28 (9-52) U/L Alkaline Phosphatase 76 (38-126) U/L Total Creatine Kinase 22 L (30-135) U/L CK-MB (CK-2) 0.7 (0.0-2.4) ng/mL CK-MB (CK-2) Rel Index 3.2 Troponin I <0.012 (0.000-0.034) ng/mL Total Protein 6.6 (6.3-8.2) g/dL Albumin 3.8 (3.5-5.0) g/dL Amylase 66 (30-110) U/L Lipase 163 (23-300) U/L 08/06/16 08/06/16 Range/Units 13:30 13:41 WBC (3.8-10.6) k/uL RBC (3.80-5.40) m/uL Hgb (11.4-16.0) gm/dL Hct (34.0-46.0) % MCV (80.0-100.0) fL MCH (25.0-35.0) pg MCHC (31.0-37.0) g/dL RDW (11.5-15.5) % Plt Count (150-450) k/uL Neutrophils % % Lymphocytes % % Monocytes % % Eosinophils % % Basophils % % Neutrophils # (1.3-7.7) k/uL Lymphocytes # (1.0-4.8) k/uL Monocytes # (0-1.0) k/uL Eosinophils # (0-0.7) k/uL Basophils # (0-0.2) k/uL PT 10.6 (9.0-12.0) sec INR 1.1 (<1.1) APTT 20.4 L (22.0-30.0) sec Sodium (137-145) mmol/L Potassium (3.5-5.1) mmol/L Chloride (98-107) mmol/L Carbon Dioxide (22-30) mmol/L Anion Gap mmol/L BUN (7-17) mg/dL Creatinine (0.52-1.04) mg/dL Est GFR (MDRD) Af Amer (>60 ml/min/1.73 sqM) Est GFR (MDRD) Non-Af (>60 ml/min/1.73 sqM) Glucose (74-99) mg/dL POC Glucose (mg/dL) 175 H (75-99) mg/dL POC Glu Clinical Data Programmer ID Bowling, Betty Calcium (8.4-10.2) mg/dL Magnesium (1.6-2.3) mg/dL Total Bilirubin (0.2-1.3) mg/dL AST (14-36) U/L ALT (9-52) U/L Alkaline Phosphatase (38-126) U/L Total Creatine Kinase (30-135) U/L CK-MB (CK-2) (0.0-2.4) ng/mL CK-MB (CK-2) Rel Index Troponin I (0.000-0.034) ng/mL Total Protein (6.3-8.2) g/dL Albumin (3.5-5.0) g/dL Amylase (30-110) U/L Lipase (23-300) U/L Disposition Clinical Impression: Bradycardia, Gastroenteritis, Dehydration Disposition: ADMITTED IP TO THIS HOSP Referrals: Lola Banuelos DO [Primary Care Provider] - 1-2 days Time of Disposition: 14:57
[2016-08-06 13:42] LABS: Basophils # (A) 0.1 k/uL (0-0.2); Basophils % (A) 1 %; CH 31.1; Eosinophils # (A) 0.1 k/uL (0-0.7); Eosinophils % (A) 2 %; HDW 2.77; HGB 13.9 gm/dL (11.4-16.0); Luc # (Auto) 0.14; Luc % (Auto) 2; Lymphocytes # (A) 1.3 k/uL (1.0-4.8); Lymphocytes % (A) 18 %; MCH 30.4 pg (25.0-35.0); MCV 92.1 fL (80.0-100.0); Mean Platelet Volume 7.9; Monocytes # (A) 0.3 k/uL (0-1.0); Monocytes % (A) 4 %; Neutrophils # (A) 5.6 k/uL (1.3-7.7); Neutrophils % (A) 74 %; RBC 4.56 m/uL (3.80-5.40); RDW 13.7 % (11.5-15.5); WBC 7.6 k/uL (3.8-10.6); WBC (Perox) 7.79
[2016-08-06 13:52] LABS: Glucose,Whole Blood 175 mg/dL (75-99)
[2016-08-06 13:53] LABS: Glucose 191 mg/dL (74-99); Total Protein 6.6 g/dL (6.3-8.2)
[2016-08-06 13:54] LABS: ALT 28 U/L (9-52); AST 24 U/L (14-36); Alkaline Phosphatase 76 U/L (38-126); Amylase 66 U/L (30-110); Anion Gap 12 mmol/L; Blood Urea Nitrogen 28 mg/dL (7-17); Calcium 9.5 mg/dL (8.4-10.2); Carbon Dioxide 27 mmol/L (22-30); Chloride 101 mmol/L (98-107); Magnesium 1.4 mg/dL (1.6-2.3); Non-African American GFR(MDRD) 52 (>60 ml/min/1.73 sqM); Sodium 140 mmol/L (137-145); Total Bilirubin 1.6 mg/dL (0.2-1.3)
[2016-08-06 13:55] LABS: Potassium 4.6 mmol/L (3.5-5.1)
[2016-08-06 13:59] LABS: INR 1.1 (<1.1); Prothrombin Time 10.6 sec (9.0-12.0)
--- NOTE | 2016-08-06 14:13 | XR ---
EXAMINATION TYPE: XR chest 2V DATE OF EXAM: 08/06/2016 1:54 PM COMPARISON: Prior chest x-ray June 04, 2016. HISTORY: Chest pain. TECHNIQUE: Frontal and lateral views of the chest are obtained. FINDINGS: There is no focal air space opacity, pleural effusion, or pneumothorax seen. The cardiac silhouette size is mildly enlarged. The osseous structures are demineralized. Degenerative change i n spine and both shoulders is noted. IMPRESSION: Mild cardiomegaly without acute pulmonary process.
[2016-08-06 14:20] LABS: Creatine Kinase 22 U/L (30-135)
[2016-08-06 14:31] LABS: Creatine Kinase MB 0.7 ng/mL (0.0-2.4); Troponin I <0.012 ng/mL (0.000-0.034)
[2016-08-06 14:51] LABS: Partial Thromboplastin Time 20.4 sec (22.0-30.0)
[2016-08-06] MEDS ORDERED: SODIUM CHLORIDE 0.9% 1,000 ML IV ONE (14:58)
[2016-08-06] MEDS ORDERED: ONDANSETRON 4 MG/2 ML VIAL IVP PRN (15:00)
[2016-08-06 18:10] LABS: Glucose,Whole Blood 212 mg/dL (75-99)
[2016-08-06] MEDS ORDERED: LORazepam 0.5 MG TAB PO PRN (18:11)
[2016-08-06] MEDS ORDERED: ACETAMINOPHEN TAB 325 MG TAB PO PRN (18:11)
[2016-08-06] MEDS ORDERED: Magnesium Replacement Protocol 1 EACH MISC MISCELLANE PRN (18:48)
[2016-08-06] MEDS: MAGNESIUM SULFATE-D5W PMX 1 GM in DEXTROSE/WATER 1 100ML.BAG IVPB SCH ×2 (20:24→21:52)
[2016-08-06] MEDS ORDERED: amLODIPine 5 MG TAB PO SCH (21:00)
[2016-08-06 21:15] LABS: Glucose,Whole Blood 160 mg/dL (75-99)
[2016-08-06] MEDS: metFORMIN 500 MG TAB PO SCH (21:51)
[2016-08-06] MEDS: DONEPEZIL 10 MG TAB PO SCH (21:51)
[2016-08-06 22:17] LABS: Hemoglobin A1C 6.6 % (4.2-6.1)
[2016-08-07] MEDS: LISINOPRIL-HCTZ 20-12.5 MG 1 EACH TAB PO SCH ×3 (00:35→20:55)
[2016-08-07 05:45] LABS: Glucose,Whole Blood 84 mg/dL (75-99)
[2016-08-07 06:18] LABS: Basophils % (A) 1 %; CH 30.7; CHCM 33.5; Eosinophils # (A) 0.1 k/uL (0-0.7); Eosinophils % (A) 2 %; HDW 2.67; Luc # (Auto) 0.14; Luc % (Auto) 2; Lymphocytes # (A) 2.1 k/uL (1.0-4.8); Lymphocytes % (A) 33 %; MCH 29.9 pg (25.0-35.0); MCHC 32.5 g/dL (31.0-37.0); MCV 92.1 fL (80.0-100.0); Monocytes # (A) 0.3 k/uL (0-1.0); Monocytes % (A) 5 %; Neutrophils # (A) 3.5 k/uL (1.3-7.7); Neutrophils % (A) 57 %; RBC 4.01 m/uL (3.80-5.40); RDW 13.6 % (11.5-15.5); WBC 6.2 k/uL (3.8-10.6); WBC (Perox) 6.51
[2016-08-07 06:27] LABS: Anion Gap 8 mmol/L; Blood Urea Nitrogen 24 mg/dL (7-17); Calcium 9.2 mg/dL (8.4-10.2); Carbon Dioxide 28 mmol/L (22-30); Chloride 105 mmol/L (98-107); Glucose 83 mg/dL (74-99); Magnesium 1.9 mg/dL (1.6-2.3); Non-African American GFR(MDRD) >60 (>60 ml/min/1.73 sqM); Potassium 4.1 mmol/L (3.5-5.1); Sodium 141 mmol/L (137-145)
[2016-08-07] MEDS: glipiZIDE 5 MG TAB PO SCH ×2 (06:50→17:00)
[2016-08-07] MEDS: ASPIRIN 81 MG CHEW PO SCH (08:38)
[2016-08-07] MEDS: ATORVASTATIN 40 MG TAB PO SCH (08:38)
[2016-08-07] MEDS: MEMANTINE 5 MG TAB PO SCH ×2 (08:38→20:55)
[2016-08-07] MEDS: CYANOCOBALAMIN 500 MCG TAB PO SCH (08:38)
[2016-08-07] MEDS: SERTRALINE 25 MG TAB PO SCH (08:39)
[2016-08-07] MEDS: metFORMIN 500 MG TAB PO SCH ×2 (08:39→17:01)
[2016-08-07] MEDS: CHOLECALCIFEROL 1,000 UNIT TAB PO SCH (11:15)
[2016-08-07 11:48] LABS: Glucose,Whole Blood 83 mg/dL (75-99)
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
[2016-08-07 13:29] VITALS: BMI 28.5
[2016-08-07 16:59] LABS: Glucose,Whole Blood 105 mg/dL (75-99)
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
[2016-08-07 20:50] LABS: Glucose,Whole Blood 93 mg/dL (75-99)
[2016-08-07] MEDS: DONEPEZIL 10 MG TAB PO SCH (20:55)
[2016-08-08 04:13] VITALS: RESP 16
[2016-08-08 06:16] LABS: Basophils % (A) 1 %; CH 30.7; CHCM 33.8; Eosinophils # (A) 0.2 k/uL (0-0.7); Eosinophils % (A) 3 %; HDW 2.69; HGB 12.5 gm/dL (11.4-16.0); Luc # (Auto) 0.14; Luc % (Auto) 3; Lymphocytes # (A) 2.1 k/uL (1.0-4.8); Lymphocytes % (A) 37 %; MCH 29.9 pg (25.0-35.0); MCHC 32.8 g/dL (31.0-37.0); MCV 91.2 fL (80.0-100.0); Mean Platelet Volume 7.3; Monocytes # (A) 0.3 k/uL (0-1.0); Monocytes % (A) 5 %; Neutrophils % (A) 52 %; RBC 4.17 m/uL (3.80-5.40); RDW 13.6 % (11.5-15.5); WBC 5.7 k/uL (3.8-10.6); WBC (Perox) 6.57
[2016-08-08 06:28] LABS: ALT 30 U/L (9-52); AST 21 U/L (14-36); Alkaline Phosphatase 79 U/L (38-126); Anion Gap 7 mmol/L; Blood Urea Nitrogen 25 mg/dL (7-17); Calcium 9.5 mg/dL (8.4-10.2); Carbon Dioxide 28 mmol/L (22-30); Chloride 103 mmol/L (98-107); Glucose 92 mg/dL (74-99); Non-African American GFR(MDRD) >60 (>60 ml/min/1.73 sqM); Potassium 3.9 mmol/L (3.5-5.1); Sodium 138 mmol/L (137-145); Total Protein 5.8 g/dL (6.3-8.2)
[2016-08-08 06:28] LABS: Glucose,Whole Blood 86 mg/dL (75-99)
[2016-08-08] MEDS: glipiZIDE 5 MG TAB PO SCH ×2 (09:05→10:12)
[2016-08-08] MEDS: metFORMIN 500 MG TAB PO SCH ×2 (09:06→10:12)
[2016-08-08] MEDS: ASPIRIN 81 MG CHEW PO SCH (10:12)
[2016-08-08] MEDS: LISINOPRIL-HCTZ 20-12.5 MG 1 EACH TAB PO SCH (10:12)
[2016-08-08] MEDS: SERTRALINE 25 MG TAB PO SCH (10:12)
[2016-08-08] MEDS: MEMANTINE 5 MG TAB PO SCH (10:12)
[2016-08-08] MEDS: CYANOCOBALAMIN 500 MCG TAB PO SCH (10:13)
[2016-08-08] MEDS: ATORVASTATIN 40 MG TAB PO SCH (10:13)
[2016-08-08 12:06] LABS: Glucose,Whole Blood 113 mg/dL (75-99)
[2016-08-08 12:11] VITALS: BP 157/73; PULSE 102; TEMP 97.7
[2016-08-08] MEDS: CHOLECALCIFEROL 1,000 UNIT TAB PO SCH (12:11)
--- NOTE | 2016-08-08 14:51 | P.DS ---
Providers Date of admission: 08/06/16 14:58 Expected date of discharge: 08/08/16 Attending physician: Hayley Adam Consults: cardiology Primary care physician: Lola Banuelos Hospital Course: discharge diagnosis #1 nausea vomiting and diarrhea possible viral gastroenteritis will treat symptomatically. Vomiting and diarrhea have resolved #2 hypotension was presyncope. Lopressor decreased to 25 mg daily #3 dehydration was acute renal failure related to prerenal azotemia improving with IV fluid #4 underlying history of hypertension #5 underlying history of hyperlipidemia #6 of Alzheimer disease with dementia maintained on Aricept and Namenda #7 underlying history of diabetes mellitus #8 underlying history of peripheral vascular disease Hospital course This is a 76-year-old female with known history of hypertension, diabetes, hyperlipidemia, with known history of coronary artery disease with history of angioplasty and stent placement . History of dementia. patient was having episodes of vomiting, and diarrhea she also felt lightheaded like she was going to pass out. It was noted that her heart rate at that time was significantly low and EMS was called. On EMS arrival patient was sitting up in a chair when she experienced a short period of what appeared to be unresponsiveness, she was difficult to arouse. Initial blood pressure obtained on EMS arrival was 97/53, heart rate at that time 42. Subsequent blood pressures 120s to 130s systolic range, heart rate remained in the low 50s since then. Blood pressure on arrival here 132/60, heart rate in the 50s. At present, blood pressure 102/56, heart rate in the 50s. EKG on arrival here showed sinus bradycardia with nonspecific ST-T wave changes. Patient was seen by cardiology. Initially the Lopressor and Norvasc were held. Blood pressures today are showing improvement. The Norvasc will be resumed. Lopressor will be decreased to 25 mg daily. Last blood pressure was a heart 57/73 with heart rate of 102. Again the Lopressor will be restarted but at a decreased dose. Patient follow-up with her PCP in 1 week. Patient is medical stable for discharge. She was also evaluated by physical therapy and the recommending home with home care. Patient had dehydration with acute kidney injury that improved with IV fluids. kidney functions have shown improvement and she had some hypoglycemia. The metformin was decreased to 500 mg twice a day. We'll have patient follow-up with her PCP to review blood pressures and blood sugars. Patient is medically stable for discharge. Please refer to chart for further details. Patient Condition at Discharge: Stable Plan - Discharge Summary New Discharge Prescriptions: metFORMIN HCL [Glucophage] 500 mg PO BID-W/MEALS #60 tab Discharge Medication List Atorvastatin [Lipitor] 40 mg PO DAILY 05/03/16 [History] glipiZIDE [Glucotrol] 5 mg PO AC-BID 05/03/16 [History] Aspirin EC [Ecotrin Low Dose] 81 mg PO DAILY 06/04/16 [History] Cyanocobalamin [Vitamin B-12] 500 mcg PO DAILY 06/04/16 [History] Donepezil [Aricept] 10 mg PO HS 06/04/16 [History] Lisinopril-Hctz 20-12.5 mg [Zestoretic 20-12.5] 1 tab PO BID 06/24/16 [History] Acetaminophen Tab [Tylenol] 650 mg PO Q6H PRN 08/06/16 [History] Cholecalciferol [Vitamin D3] 2,000 unit PO DAILY 08/06/16 [History] LORazepam [Ativan] 0.5 mg PO DAILY PRN 08/06/16 [History] Memantine HCl [Namenda Xr] 14 mg PO DAILY 08/06/16 [History] Sertraline HCl [Zoloft] 25 mg PO DAILY 08/06/16 [History] amLODIPine [Norvasc] 5 mg PO HS 08/06/16 [History] Metoprolol Tartrate [Lopressor] 25 mg PO DAILY #30 tab 08/08/16 [Rx] metFORMIN HCL [Glucophage] 500 mg PO BID-W/MEALS #60 tab 08/08/16 [Rx] Follow up Appointment(s)/Referral(s): Lola Banuelos DO [Primary Care Provider] - 1 Week Activity/Diet/Wound Care/Special Instructions: Diet: cardiac, diabetic Activity: as tolerated Discharge Disposition: HOME WITH HOME HEALTH SERVICES
--- NOTE | 2016-08-08 17:42 | PN ---
This patient was admitted with syncope. Patient had persistent nausea and vomiting. She has remained stable. No more bradycardia noted. Patient's bradycardia was most likely secondary to nausea and vomiting. Patient can be discharged home on her home medications.
== END 2016-08-08 15:34 | disposition home health service (06) | DRG 684 ==
LOC: EC 13:02 → 6SEL 14:58
PROVIDERS: ADMIT Internal Medicine; ATTEND Internal Medicine
DX: N17.9 Acute kidney failure, unspecified (principal); I95.9 Hypotension, unspecified; E11.51 Type 2 diabetes mellitus with diabetic peripheral angiopathy without gangrene; E86.0 Dehydration; R00.1 Bradycardia, unspecified; G30.9 Alzheimer's disease, unspecified; F02.80 Dementia in other diseases classified elsewhere, unspecified severity, without behavioral disturbance, psychotic disturbance, mood disturbance, and anxiety; I10 Essential (primary) hypertension; D49.1 Neoplasm of unspecified behavior of respiratory system; A08.4 Viral intestinal infection, unspecified; E78.5 Hyperlipidemia, unspecified; G43.909 Migraine, unspecified, not intractable, without status migrainosus; F32.9 Major depressive disorder, single episode, unspecified; I25.10 Atherosclerotic heart disease of native coronary artery without angina pectoris; I25.2 Old myocardial infarction; I51.7 Cardiomegaly; Z79.82 Long term (current) use of aspirin; Z79.84 Long term (current) use of oral hypoglycemic drugs; Z79.899 Other long term (current) drug therapy; Z95.5 Presence of coronary angioplasty implant and graft
CPT/HCPCS: 36415; 71020; 80048; 80053; 82150; 82550; 82553; 83036; 83690; 83735; 84484; 85025; 85610; 85730; 93005; 94760; 96360; 96361; 99285

== ENCOUNTER 2016-09-18 14:38 | Inpatient (IN) | payer MEDICARE ==
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
[2016-09-18 15:33] LABS: Basophils % (A) 1 %; CH 31.2; CHCM 35.1; Eosinophils # (A) 0.1 k/uL (0-0.7); Eosinophils % (A) 3 %; HCT 34.1 % (34.0-46.0); HDW 3.11; Luc # (Auto) 0.08; Luc % (Auto) 2; Lymphocytes # (A) 1.2 k/uL (1.0-4.8); Lymphocytes % (A) 27 %; MCH 31.4 pg (25.0-35.0); MCHC 35.1 g/dL (31.0-37.0); MCV 89.6 fL (80.0-100.0); Mean Platelet Volume 7.1; Monocytes # (A) 0.3 k/uL (0-1.0); Monocytes % (A) 6 %; Neutrophils # (A) 2.7 k/uL (1.3-7.7); Neutrophils % (A) 62 %; RBC 3.81 m/uL (3.80-5.40); RDW 13.5 % (11.5-15.5); WBC 4.4 k/uL (3.8-10.6); WBC (Perox) 4.69
[2016-09-18 15:35] LABS: Appearance,Urine Cloudy (Clear); Bacteria,Urine Rare /hpf; Bilirubin,Urine Negative (Negative); Calcium Oxalate Crystals,Urine Rare /hpf; Glucose,Urine (UA) Negative (Negative); Ketones,Urine Negative (Negative); Leukocyte Esterase,Urine Large (Negative); Mucus,Urine Rare /hpf; Nitrite,Urine Negative (Negative); PH, Urine 5.5 (5.0-8.0); Particle Count 4995; Protein,Urine Negative (Negative); RBC,Urine 2 /hpf (0-5); Specific Gravity,Urine 1.014 (1.001-1.035); Squamous Epithelial Cell,Urine 4 /hpf (0-4); UA Billing (MACRO vs. MICRO) MICRO; WBC,Urine 37 /hpf (0-5)
--- NOTE | 2016-09-18 15:40 | CT ---
EXAMINATION TYPE: CT brain wo con DATE OF EXAM: 09/18/2016 3:36 PM COMPARISON: June 24, 2016 HISTORY: Altered mental status. CT DLP: 1168.[address] of the brain was performed. The ventricles, basal cisterns and sulci overlying the cerebral convexities demonstrate mild enlargem ent. There is no evidence for intracranial hemorrhage or sulcal effacement. There is decreased attenuation about the periventricular white matter and deep white matter of both c erebral hemispheres, compatible with chronic small vessel ischemia. Differential diagnosis does inclu de demyelination. No mass effects are seen.No midline shift. Osseous calvarium is intact. If symptoms persist consider MRI. IMPRESSION: 1. Age related atrophic and chronic small vessel ischemic change without acute intracranial process s een at this time.
--- NOTE | 2016-09-18 15:40 | XR ---
EXAMINATION TYPE: XR chest 2V DATE OF EXAM: 09/18/2016 3:34 PM COMPARISON: 08/06/2016 INDICATION: Altered mental status TECHNIQUE: Single frontal view of the chest is obtained. FINDINGS: The heart size is normal. The pulmonary vasculature is normal. The lungs are clear. IMPRESSION: 1. No acute pulmonary process.
[2016-09-18 15:41] LABS: ALT 20 U/L (9-52); AST 23 U/L (14-36); Alkaline Phosphatase 84 U/L (38-126); Anion Gap 14 mmol/L; Blood Urea Nitrogen 12 mg/dL (7-17); Calcium 9.3 mg/dL (8.4-10.2); Carbon Dioxide 24 mmol/L (22-30); Chloride 105 mmol/L (98-107); Glucose 147 mg/dL (74-99); Non-African American GFR(MDRD) >60 (>60 ml/min/1.73 sqM); Potassium 3.1 mmol/L (3.5-5.1); Sodium 143 mmol/L (137-145); Total Bilirubin 1.6 mg/dL (0.2-1.3); Total Protein 6.1 g/dL (6.3-8.2)
[2016-09-18 15:45] LABS: Prothrombin Time 10.1 sec (9.0-12.0)
[2016-09-18 15:48] LABS: Creatine Kinase 57 U/L (30-135)
[2016-09-18] MEDS ORDERED: NALOXONE 0.4 MG/ML 1 ML VIAL IV PRN (15:48)
[2016-09-18] MEDS ORDERED: ONDANSETRON 4 MG/2 ML VIAL IVP PRN (15:48)
[2016-09-18] MEDS ORDERED: LORazepam 2 MG/ML SYRINGE IV PRN (15:48)
[2016-09-18] MEDS ORDERED: POTASSIUM CHLORIDE ER 20 MEQ TAB.ER PO STA (15:51)
[2016-09-18 16:02] LABS: Creatine Kinase MB 0.7 ng/mL (0.0-2.4); Troponin I <0.012 ng/mL (0.000-0.034)
[2016-09-18 16:04] LABS: Partial Thromboplastin Time 19.5 sec (22.0-30.0)
[2016-09-18] MEDS: SODIUM CHLORIDE 0.9% 1,000 ML IV SCH ×2 (16:30→23:34)
[2016-09-18 20:21] LABS: Hemoglobin A1C 5.6 % (4.2-6.1)
[2016-09-18] MEDS ORDERED: MELATONIN 5 MG TABLET PO SCH (21:00)
[2016-09-18] MEDS ORDERED: MEMANTINE HCL PO SCH (21:00)
[2016-09-18] MEDS: DONEPEZIL 10 MG TAB PO SCH (21:52)
[2016-09-18] MEDS: amLODIPine 5 MG TAB PO SCH (21:52)
[2016-09-18] MEDS: LISINOPRIL-HCTZ 20-12.5 MG 1 EACH TAB PO SCH (21:52)
[2016-09-18 22:04] LABS: Glucose,Whole Blood 116 mg/dL (75-99)
[2016-09-18] MEDS: INSULIN LISPRO (humaLOG) 300 UNIT/3 ML VIAL SQ SCH (22:10)
[2016-09-18] MEDS: QUEtiapine 25 MG TAB PO SCH (23:05)
--- NOTE | 2016-09-18 23:11 | HP ---
DATE OF ADMISSION: 09/18/2016 PRESENTING COMPLAINT: Increasing confusion. HISTORY OF PRESENTING COMPLAINT: This is a 76-year-old patient of Dr. Martinez from [facility]. Patient's chronic stable medical conditions include diabetes mellitus, type 2, hyperlipidemia, hypertension, myocardial infarction. Patient has underlying dementia. Patient was found to be wandering and was then brought in by her son for the same. Patient is a very poor historian; does not know what is going on or why she is here. Talks rather vaguely. REVIEW OF SYSTEMS: Really cannot be done because patient is a poor historian. PAST MEDICAL HISTORY: 1. Alzheimer's dementia. 2. Diabetes mellitus, type 2. 3. Hyperlipidemia. 4. Hypertension. 5. Coronary artery disease. 6. Some low back pain. PAST SURGICAL HISTORY: 1. Cardiac catheterization with stent. 2. Hysterectomy. 3. Cataracts. SOCIAL HISTORY: Patient's is in [place]. Lives probably with her son. No smoking. No alcohol. FAMILY HISTORY: Patient does not remember. HOME MEDICATIONS: 1. Glucophage 500 mg p.o. b.i.d. 2. Glucotrol 5 mg p.o. b.i.d. 3. Norvasc 5 mg p.o. at bedtime. 4. Zoloft 25 mg p.o. daily. 5. Lopressor 25 mg p.o. daily. 6. Namenda XR one capsule p.o. as directed. 7. Melatonin 10 mg p.o. at bedtime. 8. Zestoretic 14/05.5 one tablet p.o. b.i.d. 9. Ativan 0.5 p.o. daily p.r.n. 10. Aricept 10 mg p.o. at bedtime. 11. Vitamin B12 1000 mcg p.o. daily. 12. Vitamin D3 4000 units p.o. daily. 13. Lipitor 40 mg p.o. daily. 14. Aspirin 81 mg p.o. daily. 15. Tylenol 650 mg q.6 p.r.n. ALLERGIES: NONE. PHYSICAL EXAMINATION: VITAL SIGNS ON PRESENTATION: Temperature 98, pulse 80, respiration 18, blood pressure 161/77, pulse ox 94% on room air. GENERAL APPEARANCE: Average build. Lying in bed. Rather tired. Confused. EYES: Pupils equal. Conjunctivae normal. HEENT: External appearance of nose and ears normal. Oral cavity normal. NECK: JVD not raised. Mass not palpable. RESPIRATORY: Effort normal. LUNGS: Fair air entry. CARDIOVASCULAR: First and second sounds normal. No edema. ABDOMEN: Soft, nontender. Liver and spleen not palpable. LYMPHATIC: No lymph node palpable in neck or axillae. PSYCHIATRY: Patient is rather confused. NEUROLOGICAL: Moving all 4 limbs. Speech is rather slow. SKIN: Somewhat dry and thick. INVESTIGATIONS: White count 4.4, hemoglobin 12, platelets normal. Potassium 3.1. BUN and creatinine are normal. UA positive for leukocyte esterase. Patient back in May of this year did have a 2-D echocardiogram that showed preserved LV function, ejection fraction 50% to 55%, and moderate concentric left ventricular hypertrophy. ASSESSMENT: 1. This is a patient with underlying dementia with progressive confusion. Likely dementia is getting worse with an element of acute delirium from underlying urinary tract infection. 2. Acute urinary tract infection, present on admission. 3. Hypertensive heart disease. 4. Alzheimer's dementia, late-onset type. 5. Diabetes mellitus, type 2, on oral hypoglycemic. 6. Essential hypertension. PLAN: Small dose of Seroquel will be added at night. Will stop patient's calcium supplementation, as the benefits are rather limited, I think, at this point. Blood pressure is definitely running high. Will adjust medications accordingly. Will check patient's thyroid status and give DVT prophylaxis. Patient's CT scan of the brain shows age-related atrophic changes. Will give IV ceftriaxone. youth care worker needs to be involved.
[2016-09-19 00:42] VITALS: BMI 25.2
[2016-09-19] MEDS: ACETAMINOPHEN TAB 325 MG TAB PO PRN (05:54)
[2016-09-19 07:38] LABS: Glucose,Whole Blood 96 mg/dL (75-99)
[2016-09-19] MEDS: glipiZIDE 5 MG TAB PO SCH ×2 (08:09→17:05)
[2016-09-19] MEDS: metFORMIN 500 MG TAB PO SCH ×2 (08:09→17:05)
[2016-09-19] MEDS: ATORVASTATIN 40 MG TAB PO SCH (08:09)
[2016-09-19] MEDS: SERTRALINE 25 MG TAB PO SCH (08:09)
[2016-09-19] MEDS: ASPIRIN 81 MG CHEW PO SCH (08:09)
[2016-09-19] MEDS: LISINOPRIL-HCTZ 20-12.5 MG 1 EACH TAB PO SCH ×3 (08:09→20:31)
[2016-09-19] MEDS: INSULIN LISPRO (humaLOG) 300 UNIT/3 ML VIAL SQ SCH ×4 (08:10→21:15)
[2016-09-19] MEDS: METOPROLOL TARTRATE 25 MG TAB PO SCH (08:10)
[2016-09-19] MEDS: SODIUM CHLORIDE 0.9% 1,000 ML IV SCH ×3 (08:10→19:17)
[2016-09-19] MEDS ORDERED: MEMANTINE 5 MG TAB PO SCH (09:00)
[2016-09-19] MEDS: CYANOCOBALAMIN 500 MCG TAB PO SCH (11:17)
[2016-09-19] MEDS ORDERED: CHOLECALCIFEROL 1,000 UNIT TAB PO SCH (12:00)
[2016-09-19 12:01] LABS: Glucose,Whole Blood 73 mg/dL (75-99)
[2016-09-19 17:21] LABS: Glucose,Whole Blood 87 mg/dL (75-99)
[2016-09-19] MEDS: QUEtiapine 25 MG TAB PO SCH (20:27)
[2016-09-19] MEDS: DONEPEZIL 10 MG TAB PO SCH (20:27)
[2016-09-19] MEDS: amLODIPine 5 MG TAB PO SCH (20:34)
[2016-09-19 20:55] LABS: Glucose,Whole Blood 83 mg/dL (75-99)
[2016-09-20] MEDS: ACETAMINOPHEN TAB 325 MG TAB PO PRN (04:33)
[2016-09-20 07:25] LABS: Glucose,Whole Blood 94 mg/dL (75-99)
[2016-09-20 08:13] LABS: ALT 29 U/L (9-52); AST 24 U/L (14-36); Alkaline Phosphatase 76 U/L (38-126); Anion Gap 6 mmol/L; Blood Urea Nitrogen 11 mg/dL (7-17); Calcium 8.8 mg/dL (8.4-10.2); Carbon Dioxide 29 mmol/L (22-30); Chloride 107 mmol/L (98-107); Glucose 94 mg/dL (74-99); Non-African American GFR(MDRD) >60 (>60 ml/min/1.73 sqM); Potassium 3.2 mmol/L (3.5-5.1); Sodium 142 mmol/L (137-145); Total Bilirubin 0.9 mg/dL (0.2-1.3); Total Protein 5.5 g/dL (6.3-8.2)
[2016-09-20] MEDS: INSULIN LISPRO (humaLOG) 300 UNIT/3 ML VIAL SQ SCH ×4 (08:22→22:18)
[2016-09-20] MEDS: SERTRALINE 25 MG TAB PO SCH (08:23)
[2016-09-20] MEDS: METOPROLOL TARTRATE 25 MG TAB PO SCH (08:23)
[2016-09-20] MEDS: LISINOPRIL-HCTZ 20-12.5 MG 1 EACH TAB PO SCH ×2 (08:23→21:02)
[2016-09-20] MEDS: ASPIRIN 81 MG CHEW PO SCH (08:24)
[2016-09-20] MEDS: metFORMIN 500 MG TAB PO SCH ×2 (08:24→17:29)
[2016-09-20] MEDS: glipiZIDE 5 MG TAB PO SCH (08:24)
[2016-09-20] MEDS: ATORVASTATIN 40 MG TAB PO SCH (08:24)
[2016-09-20] MEDS: SODIUM CHLORIDE 0.9% 1,000 ML IV SCH ×2 (08:24→17:28)
[2016-09-20] MEDS ORDERED: MEMANTINE 5 MG TAB PO SCH (09:00)
--- NOTE | 2016-09-20 09:39 | PN ---
DATE OF SERVICE: 09/19/2016 PRESENTING COMPLAINT: Increasing confusion. INTERVAL HISTORY: This is a 76-year-old patient who was brought to the emergency department after she was found to be wandering down the street and then brought in by her son for confusion and underlying dementia. Today patient is more aware. She is a more awake. She is alert and oriented x2, anxious-appearing, tearful when speaking of her . Review of systems unable to performed due to current patient condition. CURRENT MEDICATIONS: Glucophage, Glucotrol, Norvasc, Zoloft, Lopressor, Namenda, melatonin, Zestoretic, Ativan, Aricept, vitamin B12, vitamin D3, Lipitor, aspirin, Tylenol. PHYSICAL EXAM: VITAL SIGNS: Temperature 98.4, pulse 69, respiratory rate 22, blood pressure 122/69.Oxygen saturation 95% on room air. GENERAL APPEARANCE: Lying in bed, sitting up, looking tired, a bit confused, tearful when speaking of her . EYES: Pupils equal. Conjunctivae normal. NECK: JVD not raised. Mass is not palpable. Respiratory effort normal. Lungs fair air entry. CARDIOVASCULAR: S1, S2 noted and normal. No edema. ABDOMEN: Soft, nontender. Liver and spleen not palpable. PSYCHIATRY: Patient remains a bit confused, tearful when speaking of her . SKIN: Somewhat dry and thick. INVESTIGATIONS: No new lab values to report. ASSESSMENT: 1. Patient with underlying dementia and progressive confusion. Likely dementia is getting worse with an element of acute delirium from underlying urinary tract infection. 2. Acute urinary tract infection present on admission, improving. 3. Hypertensive heart disease. 4. Alzheimer's dementia, late onset type. 5. Diabetes mellitus type 2, on oral hypoglycemics. 6. Essential hypertension. PLAN: Can continue Seroquel at night. Blood pressure is under better control today. Thyroid will be checked with a.m. labs. CT scan of the brain on 09/18 reveals age-related atrophic changes. Social Work needs to be involved for placement as family would like patient to be placed at [facility] alongside her . Will continue to monitor.
[2016-09-20 11:51] LABS: Glucose,Whole Blood 70 mg/dL (75-99)
[2016-09-20] MEDS: CYANOCOBALAMIN 500 MCG TAB PO SCH (11:55)
--- NOTE | 2016-09-20 16:47 | DS ---
DATE OF ADMISSION: 09/18/2016 DATE OF DISCHARGE: FINAL DIAGNOSES: 1. Acute delirium from underlying urinary tract infection. 2. Alzheimer's dementia, late onset type. 3. Acute urinary tract infection, present on admission. 4. Hypertensive heart disease. 5. Diabetes mellitus type 2, on oral hypoglycemic. 6. Hypoglycemia. Some medications had to be cut back/Glucotrol. 7. Essential hypertension. HOSPITAL COURSE: This patient presented with increasing confusion, felt to be acute delirium. Patient was found to have urinary tract infection, started with antibiotics, to which she responded well. The patient's sugars are tending to run on the lower side, hence Glucotrol is being discontinued for now. Patient's CT scan of the brain showed some chronic changes. Age related atrophic changes. With hydration, antibiotics is doing better. The patient rather gets emotional at times about her who is in a group home. Urine cultures were negative. On examination the patient able to answer simple questions. LUNGS: Clear to auscultation. CARDIOVASCULAR: First and second sounds normal. Sitting up, comfortable. DISCHARGE MEDICATIONS: 1. Lipitor 40 mg a day. 2. Aspirin 81 mg a day. 3. Vitamin B12 1000 mcg p.o. daily. 4. Aricept 10 mg p.o. q.h.s. 5. Zestoretic 14/05.5 1 tablet p.o. b.i.d. 6. Tylenol 650 mg p.o. q.6 p.r.n. 7. Vitamin D3, 2000 units p.o. daily. 8. Zoloft 25 mg p.o. daily. 9. Norvasc 5 mg p.o. q.h.s. 10. Lopressor 25 mg p.o. daily. 11. Glucophage 500 mg p.o. b.i.d. 12. Vitamin D3 4000 units p.o. daily. 13. Namenda XL 1 capsule p.o. as before. 14. Ceftin 250 mg p.o. b.i.d.; 10 tablets a day. 15. Seroquel 12.5 mg p.o. q.h.s. DISPOSITION: [facility]. Follow up with Dr. Merrill. LABS: CBC, BMP in 3 days. Overall prognosis is guarded. CODE STATUS IS FULL CODE. DC planning more than 35 minutes.
[2016-09-20 16:48] LABS: Glucose,Whole Blood 96 mg/dL (75-99)
[2016-09-20] MEDS ORDERED: MEMANTINE 10 MG TAB PO SCH (21:00)
[2016-09-20] MEDS: QUEtiapine 25 MG TAB PO SCH (21:02)
[2016-09-20] MEDS: DONEPEZIL 10 MG TAB PO SCH (21:03)
[2016-09-20] MEDS: amLODIPine 5 MG TAB PO SCH (21:30)
[2016-09-20 22:20] LABS: Glucose,Whole Blood 89 mg/dL (75-99)
[2016-09-21] MEDS: SODIUM CHLORIDE 0.9% 1,000 ML IV SCH ×2 (00:03→08:16)
[2016-09-21 07:47] LABS: Glucose,Whole Blood 90 mg/dL (75-99)
[2016-09-21 08:04] LABS: Basophils % (A) 1 %; CH 30.9; CHCM 33.7; Eosinophils # (A) 0.2 k/uL (0-0.7); Eosinophils % (A) 5 %; HCT 34.1 % (34.0-46.0); HDW 2.95; HGB 11.4 gm/dL (11.4-16.0); Luc # (Auto) 0.05; Luc % (Auto) 1; Lymphocytes # (A) 1.2 k/uL (1.0-4.8); Lymphocytes % (A) 26 %; MCH 30.8 pg (25.0-35.0); MCHC 33.4 g/dL (31.0-37.0); MCV 92.3 fL (80.0-100.0); Mean Platelet Volume 6.7; Monocytes # (A) 0.2 k/uL (0-1.0); Monocytes % (A) 5 %; Neutrophils # (A) 2.8 k/uL (1.3-7.7); Neutrophils % (A) 63 %; RDW 13.8 % (11.5-15.5); WBC 4.5 k/uL (3.8-10.6); WBC (Perox) 4.97
[2016-09-21] MEDS: INSULIN LISPRO (humaLOG) 300 UNIT/3 ML VIAL SQ SCH (08:07)
[2016-09-21] MEDS: LISINOPRIL-HCTZ 20-12.5 MG 1 EACH TAB PO SCH (08:15)
[2016-09-21] MEDS: METOPROLOL TARTRATE 25 MG TAB PO SCH (08:15)
[2016-09-21] MEDS: ATORVASTATIN 40 MG TAB PO SCH (08:15)
[2016-09-21] MEDS: SERTRALINE 25 MG TAB PO SCH (08:15)
[2016-09-21] MEDS: metFORMIN 500 MG TAB PO SCH (08:15)
[2016-09-21] MEDS: ASPIRIN 81 MG CHEW PO SCH (08:15)
[2016-09-21 08:21] VITALS: BP 160/66; PULSE 66; RESP 16; TEMP 97
[2016-09-21 08:26] LABS: Anion Gap 7 mmol/L; Blood Urea Nitrogen 9 mg/dL (7-17); Calcium 9.2 mg/dL (8.4-10.2); Carbon Dioxide 30 mmol/L (22-30); Chloride 104 mmol/L (98-107); Glucose 96 mg/dL (74-99); Non-African American GFR(MDRD) >60 (>60 ml/min/1.73 sqM); Potassium 3.3 mmol/L (3.5-5.1); Sodium 141 mmol/L (137-145)
[2016-09-27] MEDS ORDERED: MEMANTINE 10 MG TAB PO SCH (09:00)
--- NOTE | 2016-10-17 06:53 | PN ---
DATE OF SERVICE: 09/19/2016 ATTENDING NOTE: This patient was seen and examined by me on 09/19/16. I reviewed the note of my nurse practitioner, Ms. Galindo. Discussed and agree with the same. This is a patient with a dementia who presented with wandering about ( ) delirium. Patient answering simple questions. Sometimes tearful, talking about her . On examination, afebrile, blood pressure 120/69, pulse ox 95% on room air. Lying in bed, somewhat tired appearing, tearful when speaking. RESPIRATORY: Effort normal. Lungs are clear. ABDOMEN: Soft, nontender. PSYCH: Somewhat tearful. ASSESSMENT: Alzheimer's dementia, late onset type, some element of delirium from urinary tract infection. PLAN: Continue current medication and treatment plan including Seroquel at night. Labs will be followed. Looking at going to the ECF.
== END 2016-09-21 10:52 | DRG 690 ==
LOC: EC 14:38 → OBSVTOIN 15:46 → 3OBS 15:46 → 4MS4W 16:37
PROVIDERS: ADMIT Hospitalist; ATTEND Hospitalist
DX: N39.0 Urinary tract infection, site not specified (principal); E11.649 Type 2 diabetes mellitus with hypoglycemia without coma; I11.9 Hypertensive heart disease without heart failure; G30.9 Alzheimer's disease, unspecified; F02.80 Dementia in other diseases classified elsewhere, unspecified severity, without behavioral disturbance, psychotic disturbance, mood disturbance, and anxiety; E78.5 Hyperlipidemia, unspecified; I25.10 Atherosclerotic heart disease of native coronary artery without angina pectoris; I25.2 Old myocardial infarction; Z79.82 Long term (current) use of aspirin; Z79.84 Long term (current) use of oral hypoglycemic drugs; Z79.899 Other long term (current) drug therapy; M54.5 Low back pain
CPT/HCPCS: 36415; 70450; 71020; 80048; 80053; 81001; 82550; 82553; 83036; 84484; 85025; 85610; 85730; 87086; 93005; 96365; 96366; 99285

== ENCOUNTER 2016-09-22 10:28 | Emergency (ER) | payer MEDICARE ==
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
[2016-09-22 11:23] LABS: Basophils % (A) 1 %; CH 31.2; CHCM 34.3; Eosinophils # (A) 0.1 k/uL (0-0.7); Eosinophils % (A) 2 %; HDW 2.93; HGB 11.5 gm/dL (11.4-16.0); Luc # (Auto) 0.08; Luc % (Auto) 2; Lymphocytes # (A) 1.1 k/uL (1.0-4.8); Lymphocytes % (A) 25 %; MCH 32.1 pg (25.0-35.0); MCV 91.5 fL (80.0-100.0); Mean Platelet Volume 6.8; Monocytes # (A) 0.3 k/uL (0-1.0); Monocytes % (A) 6 %; Neutrophils # (A) 2.8 k/uL (1.3-7.7); Neutrophils % (A) 65 %; RDW 13.8 % (11.5-15.5); WBC 4.4 k/uL (3.8-10.6); WBC (Perox) 4.49
[2016-09-22 11:31] LABS: ALT 28 U/L (9-52); AST 22 U/L (14-36); Alkaline Phosphatase 86 U/L (38-126); Anion Gap 6 mmol/L; Blood Urea Nitrogen 12 mg/dL (7-17); Carbon Dioxide 32 mmol/L (22-30); Chloride 104 mmol/L (98-107); Glucose 143 mg/dL (74-99); Non-African American GFR(MDRD) >60 (>60 ml/min/1.73 sqM); Potassium 3.4 mmol/L (3.5-5.1); Sodium 142 mmol/L (137-145); Total Bilirubin 1.2 mg/dL (0.2-1.3); Total Protein 5.9 g/dL (6.3-8.2)
[2016-09-22] MEDS ORDERED: LORazepam 2 MG/ML SYRINGE IV STA (13:00)
[2016-09-22 13:19] VITALS: BP 147/55; PULSE 62; RESP 16; TEMP 97.6
[2016-09-22 13:28] LABS: Appearance,Urine Clear (Clear); Bacteria,Urine Rare /hpf; Bilirubin,Urine Negative (Negative); Glucose,Urine (UA) Negative (Negative); Ketones,Urine Negative (Negative); Leukocyte Esterase,Urine Trace (Negative); Mucus,Urine Rare /hpf; Nitrite,Urine Negative (Negative); PH, Urine 6.5 (5.0-8.0); Particle Count 1047; Protein,Urine Negative (Negative); RBC,Urine <1 /hpf (0-5); Specific Gravity,Urine 1.008 (1.001-1.035); Squamous Epithelial Cell,Urine <1 /hpf (0-4); UA Billing (MACRO vs. MICRO) MICRO; Urobilinogen,Urine <2.0 mg/dL (<2.0); WBC,Urine 1 /hpf (0-5)
[2016-09-22] MEDS ORDERED: LORazepam 2 MG/ML SYRINGE IM STA (13:31)
== END 2016-09-22 13:43 | disposition home or self-care (01) ==
LOC: EC 10:28
DX: F03.90 Unspecified dementia, unspecified severity, without behavioral disturbance, psychotic disturbance, mood disturbance, and anxiety (principal); E78.5 Hyperlipidemia, unspecified; I10 Essential (primary) hypertension; I25.2 Old myocardial infarction; F32.9 Major depressive disorder, single episode, unspecified; Z95.5 Presence of coronary angioplasty implant and graft; Z79.82 Long term (current) use of aspirin; Z79.899 Other long term (current) drug therapy
CPT/HCPCS: 99284; 96372; 82075; 36415; 93005; 80053; 85025; 81001; 80306; J2060

== ENCOUNTER 2016-09-26 13:46 | Emergency (ER) | payer MEDICARE ==
--- NOTE | 2016-09-26 14:58 | XR ---
EXAMINATION TYPE: XR chest 2V DATE OF EXAM: 09/26/2016 2:52 PM COMPARISON: 09/18/2016 HISTORY: Shortness of breath TECHNIQUE: Frontal and lateral views of the chest are obtained. FINDINGS: Scattered senescent parenchymal changes noted. Hyperinflation compatible with COPD. No evidence for infiltrate. No evidence for atelectasis. Heart size is stable. Mediastinal structures are stable and grossly unremarkable. No evidence for hilar prominence. Degenerative changes dorsal spine. IMPRESSION: 1. No evidence for acute pulmonary disease.
[2016-09-26 14:59] LABS: Basophils % (A) 1 %; CH 31.3; CHCM 33.7; Eosinophils # (A) 0.1 k/uL (0-0.7); Eosinophils % (A) 2 %; HCT 38.7 % (34.0-46.0); HDW 2.83; Luc # (Auto) 0.09; Luc % (Auto) 2; Lymphocytes # (A) 1.7 k/uL (1.0-4.8); Lymphocytes % (A) 27 %; MCH 31.3 pg (25.0-35.0); MCHC 33.6 g/dL (31.0-37.0); MCV 93.3 fL (80.0-100.0); Mean Platelet Volume 6.7; Monocytes # (A) 0.4 k/uL (0-1.0); Monocytes % (A) 6 %; Neutrophils % (A) 64 %; RBC 4.15 m/uL (3.80-5.40); RDW 13.7 % (11.5-15.5); WBC 6.2 k/uL (3.8-10.6); WBC (Perox) 6.14
[2016-09-26 15:00] LABS: Appearance,Urine Clear (Clear); Bacteria,Urine Rare /hpf; Bilirubin,Urine Negative (Negative); Glucose,Urine (UA) Negative (Negative); Ketones,Urine Negative (Negative); Leukocyte Esterase,Urine Small (Negative); Mucus,Urine Rare /hpf; Nitrite,Urine Negative (Negative); PH, Urine 7.5 (5.0-8.0); Particle Count 2430; Protein,Urine Negative (Negative); RBC,Urine 1 /hpf (0-5); Specific Gravity,Urine 1.012 (1.001-1.035); Squamous Epithelial Cell,Urine 2 /hpf (0-4); UA Billing (MACRO vs. MICRO) MICRO; Urobilinogen,Urine <2.0 mg/dL (<2.0); WBC,Urine 2 /hpf (0-5)
[2016-09-26 15:06] LABS: Prothrombin Time 10.3 sec (9.0-12.0)
[2016-09-26 15:09] LABS: ALT 27 U/L (9-52); AST 20 U/L (14-36); Alcohol <10 mg/dL; Alkaline Phosphatase 94 U/L (38-126); Anion Gap 9 mmol/L; Blood Urea Nitrogen 16 mg/dL (7-17); Calcium 9.7 mg/dL (8.4-10.2); Carbon Dioxide 31 mmol/L (22-30); Chloride 99 mmol/L (98-107); Glucose 135 mg/dL (74-99); Non-African American GFR(MDRD) >60 (>60 ml/min/1.73 sqM); Potassium 3.8 mmol/L (3.5-5.1); Sodium 139 mmol/L (137-145); Total Bilirubin 1.3 mg/dL (0.2-1.3); Total Protein 6.7 g/dL (6.3-8.2)
[2016-09-26 15:12] LABS: Partial Thromboplastin Time 21.3 sec (22.0-30.0)
[2016-09-26 15:24] LABS: Glucose,Whole Blood 138 mg/dL (75-99)
[2016-09-26 15:29] LABS: Creatine Kinase 32 U/L (30-135)
[2016-09-26 15:41] LABS: Creatine Kinase MB 0.4 ng/mL (0.0-2.4); Troponin I <0.012 ng/mL (0.000-0.034)
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
--- NOTE | 2016-09-26 16:08 | CT ---
EXAMINATION TYPE: CT brain wo con DATE OF EXAM: 09/26/2016 3:58 PM COMPARISON: Prior CT brain August HISTORY: AMS CT DLP: [id number] mGycm Automated exposure control for dose reduction was used. FINDINGS: There is no acute intracranial hemorrhage, mass effect, or midline shift identified. The ventricles and sulci are within normal limits in size. Periventricular white matter shows patchy low attenuation . There is no hemorrhage or hydrocephalus. Cortical atrophy is noted. Cerebral vascular calcification s are present. The globes are intact and the visualized sinuses are clear. IMPRESSION: No acute intracranial hemorrhage, mass effect, or midline shift is seen.
[2016-09-26] MEDS ORDERED: LORazepam 1 MG TAB PO STA (18:13)
[2016-09-26 21:44] VITALS: BP 140/68; PULSE 80; RESP 16; TEMP 98
== END 2016-09-26 21:43 ==
LOC: EC 13:46
DX: F23 Brief psychotic disorder (principal); F03.90 Unspecified dementia, unspecified severity, without behavioral disturbance, psychotic disturbance, mood disturbance, and anxiety; E78.5 Hyperlipidemia, unspecified; I10 Essential (primary) hypertension; F32.9 Major depressive disorder, single episode, unspecified; I25.2 Old myocardial infarction; Z79.82 Long term (current) use of aspirin; Z79.899 Other long term (current) drug therapy; Z86.69 Personal history of other diseases of the nervous system and sense organs
CPT/HCPCS: 36415; 70450; 71020; 80053; 80306; 80320; 81001; 82550; 82553; 84484; 85025; 85610; 85730; 93005; 99285

== ENCOUNTER 2016-10-30 20:17 | Emergency (ER) | payer MEDICARE ==
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
[2016-10-30 21:39] LABS: Basophils % (A) 1 %; CH 31.4; CHCM 34.1; Eosinophils # (A) 0.2 k/uL (0-0.7); Eosinophils % (A) 4 %; HCT 38.6 % (34.0-46.0); HDW 2.66; HGB 12.8 gm/dL (11.4-16.0); Luc # (Auto) 0.08; Luc % (Auto) 1; Lymphocytes # (A) 1.6 k/uL (1.0-4.8); Lymphocytes % (A) 28 %; MCH 30.6 pg (25.0-35.0); MCHC 33.1 g/dL (31.0-37.0); MCV 92.6 fL (80.0-100.0); Mean Platelet Volume 6.8; Monocytes # (A) 0.3 k/uL (0-1.0); Monocytes % (A) 5 %; Neutrophils # (A) 3.6 k/uL (1.3-7.7); Neutrophils % (A) 61 %; RBC 4.17 m/uL (3.80-5.40); RDW 12.9 % (11.5-15.5); WBC 5.9 k/uL (3.8-10.6); WBC (Perox) 6.05
[2016-10-30 21:48] LABS: ALT 30 U/L (9-52); AST 23 U/L (14-36); Alkaline Phosphatase 91 U/L (38-126); Anion Gap 11 mmol/L; Blood Urea Nitrogen 13 mg/dL (7-17); Calcium 9.7 mg/dL (8.4-10.2); Carbon Dioxide 26 mmol/L (22-30); Chloride 104 mmol/L (98-107); Glucose 144 mg/dL (74-99); Non-African American GFR(MDRD) >60 (>60 ml/min/1.73 sqM); Potassium 3.9 mmol/L (3.5-5.1); Sodium 141 mmol/L (137-145); Total Bilirubin 1.3 mg/dL (0.2-1.3); Total Protein 6.4 g/dL (6.3-8.2)
[2016-10-30 22:36] LABS: Appearance,Urine Clear (Clear); Bilirubin,Urine Negative (Negative); Glucose,Urine (UA) Negative (Negative); Ketones,Urine 1+ (Negative); Leukocyte Esterase,Urine Moderate (Negative); Nitrite,Urine Negative (Negative); Particle Count 1485; Protein,Urine Negative (Negative); RBC,Urine 3 /hpf (0-5); Specific Gravity,Urine 1.011 (1.001-1.035); Squamous Epithelial Cell,Urine 1 /hpf (0-4); UA Billing (MACRO vs. MICRO) MICRO; WBC,Urine 5 /hpf (0-5)
[2016-10-31] MEDS ORDERED: LORazepam 1 MG TAB PO STA (01:56)
[2016-10-31] MEDS ORDERED: LORazepam 2 MG/ML SYRINGE IM STA (02:38)
--- NOTE | 2016-10-31 03:54 | XR ---
EXAM: XR Chest, 2 Views CLINICAL HISTORY: Reason: cough TECHNIQUE: Frontal and lateral views of the chest. COMPARISON: 09/26/16 FINDINGS: Lungs: The lungs are stable without new infiltrate. Pleural space: Unremarkable. No pneumothorax. Heart: The heart size and mediastinal contours are stable allowing for mild leftward rotation on the frontal view. Mediastinum: See above. Bones/joints: There are again multilevel degenerative changes. Now included is mild loss of height of an upper lumbar vertebral body, probably L1, with well-defined endplate suggesting it is chronic. IMPRESSION: No new acute intrathoracic abnormality is seen to account for the patient's cough, as above.
[2016-10-31 06:29] VITALS: RESP 18
[2016-10-31] MEDS ORDERED: LORazepam 0.5 MG TAB PO PRN (09:48)
[2016-10-31] MEDS ORDERED: metFORMIN 500 MG TAB PO SCH (10:00)
[2016-10-31 10:13] LABS: Glucose,Whole Blood 126 mg/dL (75-99)
[2016-10-31 16:25] VITALS: BP 141/62; PULSE 78; TEMP 97.6
[2016-10-31] MEDS ORDERED: LISINOPRIL-HCTZ 20-12.5 MG 1 EACH TAB PO SCH (21:00)
[2016-10-31] MEDS ORDERED: DONEPEZIL 10 MG TAB PO SCH (21:00)
== END 2016-10-31 17:52 ==
LOC: EC 20:17
DX: F03.90 Unspecified dementia, unspecified severity, without behavioral disturbance, psychotic disturbance, mood disturbance, and anxiety (principal); F29 Unspecified psychosis not due to a substance or known physiological condition; E78.5 Hyperlipidemia, unspecified; I10 Essential (primary) hypertension; F32.9 Major depressive disorder, single episode, unspecified; I25.2 Old myocardial infarction; Z79.82 Long term (current) use of aspirin; Z79.899 Other long term (current) drug therapy; Z86.69 Personal history of other diseases of the nervous system and sense organs; Z87.39 Personal history of other diseases of the musculoskeletal system and connective tissue
CPT/HCPCS: 36415 ×2; 93005; 80053; 85025; 81001; 80306; 71020; 99285; 96372; J2060

== ENCOUNTER 2018-09-07 18:22 | Emergency (ER) | payer MEDICARE ==
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
[2018-09-07 18:37] VITALS: BP 127/66; PULSE 78; RESP 16; TEMP 97.1
[2018-09-07 19:15] LABS: Basophils % (A) 1 %; Eosinophils # (A) 0.3 k/uL (0-0.7); Eosinophils % (A) 5 %; HCT 40.2 % (34.0-46.0); HGB 13.1 gm/dL (11.4-16.0); Lymphocytes # (A) 1.9 k/uL (1.0-4.8); Lymphocytes % (A) 33 %; MCHC 32.5 g/dL (31.0-37.0); MCV 92.2 fL (80.0-100.0); Mean Platelet Volume 6.7; Monocytes # (A) 0.3 k/uL (0-1.0); Monocytes % (A) 5 %; Neutrophils # (A) 3.1 k/uL (1.3-7.7); Neutrophils % (A) 55 %; Platelet Count 233 k/uL (150-450); RBC 4.36 m/uL (3.80-5.40); RDW 13.2 % (11.5-15.5); WBC 5.7 k/uL (3.8-10.6)
[2018-09-07 19:24] LABS: ALT 22 U/L (9-52); AST 19 U/L (14-36); Albumin 3.7 g/dL (3.5-5.0); Alkaline Phosphatase 108 U/L (38-126); Anion Gap 5 mmol/L; Blood Urea Nitrogen 18 mg/dL (7-17); Calcium 9.9 mg/dL (8.4-10.2); Carbon Dioxide 31 mmol/L (22-30); Chloride 104 mmol/L (98-107); Glucose 149 mg/dL (74-99); Potassium 4.6 mmol/L (3.5-5.1); Sodium 140 mmol/L (137-145); Total Bilirubin 0.8 mg/dL (0.2-1.3); Total Protein 6.3 g/dL (6.3-8.2)
[2018-09-07 19:32] LABS: Glucose,Whole Blood 143 mg/dL (75-99)
--- NOTE | 2018-09-07 19:34 | CT ---
EXAMINATION TYPE: CT brain wo con DATE OF EXAM: 09/07/2018 HISTORY: Confusion, ams. No contrast CT DLP: 1142.4 mGycm. Automated Exposure Control for Dose Reduction was Utilized. TECHNIQUE: CT scan of the head is performed without contrast. COMPARISON: CT brain September 26, 2016 FINDINGS: There is no acute intracranial hemorrhage or midline shift identified. There is diffuse v entricular and sulcal prominence consistent with diffuse age-related cerebral atrophy. There is low- attenuation in the periventricular white matter consistent with chronic small vessel ischemic change. The globes are intact and the visualized sinuses are clear. IMPRESSION: No acute intracranial hemorrhage or midline shift. There is fairly moderate diffuse age -related cerebral atrophy and chronic small vessel ischemic change redemonstrated without significant interval change.
[2018-09-07 19:38] LABS: INR 0.9 (<1.2); Partial Thromboplastin Time 22.3 sec (22.0-30.0); Prothrombin Time 9.5 sec (9.0-12.0)
--- NOTE | 2018-09-07 19:51 | XR ---
EXAMINATION TYPE: XR chest 2V DATE OF EXAM: 09/07/2018 COMPARISON: Chest x-ray October 31, 2016 HISTORY: Altered mental status and weakness. TECHNIQUE: Frontal and lateral views of the chest are obtained. FINDINGS: Overlying EKG leads are seen. There is chronic parenchymal change without suspicious focal air space opacity, pleural effusion, or pneumothorax seen. The cardiac silhouette size is stable and mildly enlarged with atherosclerotic thoracic aorta. Multilevel spurring in thoracic spine is redemo nstrated. IMPRESSION: Cardiomegaly and chronic parenchymal changes without acute pulmonary process.
== END 2018-09-07 22:27 | disposition home or self-care (01) ==
LOC: EC 18:22 → EEVIPCON 18:22 → EC 22:27
DX: F03.90 Unspecified dementia, unspecified severity, without behavioral disturbance, psychotic disturbance, mood disturbance, and anxiety (principal); E78.5 Hyperlipidemia, unspecified; I10 Essential (primary) hypertension; I25.2 Old myocardial infarction; F32.9 Major depressive disorder, single episode, unspecified; Z79.82 Long term (current) use of aspirin; Z79.899 Other long term (current) drug therapy; Z86.69 Personal history of other diseases of the nervous system and sense organs; Z95.5 Presence of coronary angioplasty implant and graft
CPT/HCPCS: 36415; 70450; 71046; 80053; 82140; 84484; 85025; 85610; 85730; 93005; 99285

== ENCOUNTER 2018-12-04 13:53 | Emergency (ER) | payer MEDICARE ==
[2018-12-04 14:33] VITALS: TEMP 96.9
[2018-12-04] MEDS ORDERED: SODIUM CHLORIDE 0.9% 1,000 ML IV STA (14:50)
[2018-12-04 15:11] LABS: Basophils % (A) 0 %; Eosinophils # (A) 0.2 k/uL (0-0.7); Eosinophils % (A) 3 %; HCT 38.3 % (34.0-46.0); HGB 12.5 gm/dL (11.4-16.0); Lymphocytes # (A) 0.8 k/uL (1.0-4.8); Lymphocytes % (A) 10 %; MCH 29.9 pg (25.0-35.0); MCHC 32.6 g/dL (31.0-37.0); MCV 91.7 fL (80.0-100.0); Mean Platelet Volume 7.4; Monocytes # (A) 0.4 k/uL (0-1.0); Monocytes % (A) 5 %; Neutrophils # (A) 6.6 k/uL (1.3-7.7); Neutrophils % (A) 81 %; Platelet Count 184 k/uL (150-450); RBC 4.18 m/uL (3.80-5.40); RDW 13.2 % (11.5-15.5); WBC 8.1 k/uL (3.8-10.6)
--- NOTE | 2018-12-04 15:16 | XR ---
EXAMINATION TYPE: XR KUB DATE OF EXAM: 12/04/2018 COMPARISON: None INDICATION: Pain TECHNIQUE: Single view abdomen supine view FINDINGS: There is a normal bowel gas pattern. Psoas margins are normal. There may be a 0.8 cm calcification at the inferior pole right kidney. Phleboliths are within the pel vis. Organomegaly is not evident. IMPRESSION: 1. Right renal stone.
[2018-12-04 15:29] LABS: Appearance,Urine Cloudy (Clear); Bilirubin,Urine 1+ (Negative); Blood,Urine Small (Negative); Color,Urine Yellow; Glucose,Urine (UA) Negative (Negative); Hyaline Casts,Urine 2 /lpf (0-2); Ketones,Urine Trace (Negative); Leukocyte Esterase,Urine Moderate (Negative); Mucus,Urine Few /hpf; Nitrite,Urine Negative (Negative); PH, Urine 5.5 (5.0-8.0); Protein,Urine 1+ (Negative); RBC,Urine 34 /hpf (0-5); Specific Gravity,Urine 1.029 (1.001-1.035); Squamous Epithelial Cell,Urine 2 /hpf (0-4); WBC,Urine 14 /hpf (0-5)
[2018-12-04 15:30] LABS: ALT 14 U/L (9-52); AST 22 U/L (14-36); African American GFR (CKD) >90 (>60 ml/min/1.73 sqM); Albumin 3.6 g/dL (3.5-5.0); Alkaline Phosphatase 110 U/L (38-126); Amylase 73 U/L (30-110); Anion Gap 10 mmol/L; Blood Urea Nitrogen 25 mg/dL (7-17); Calcium 9.2 mg/dL (8.4-10.2); Carbon Dioxide 26 mmol/L (22-30); Chloride 106 mmol/L (98-107); Glucose 155 mg/dL (74-99); Lipase 166 U/L (23-300); Potassium 4.1 mmol/L (3.5-5.1); Sodium 142 mmol/L (137-145); Total Bilirubin 0.9 mg/dL (0.2-1.3); Total Protein 6.2 g/dL (6.3-8.2)
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
--- NOTE | 2018-12-04 17:26 | CT ---
EXAMINATION TYPE: CT abdomen pelvis wo con DATE OF EXAM: 12/04/2018 COMPARISON: None HISTORY: Abdominal pain CT DLP: 910.5 mGycm Automated exposure control for dose reduction was used. TECHNIQUE: Helical acquisition of images was performed from the lung bases through the pelvis. FINDINGS: There is some mild scarring and atelectasis at the lung bases. There is no pleural effusion. Heart si ze is fairly normal. There is no pericardial effusion. There are numerous calcified splenic granulomata. Stomach has normal size. There is no evidence of pa ncreatic mass. Liver has normal size and contour. Bile ducts are not dilated. Gallbladder appears nor mal. There is no adrenal mass. There is a 1 cm calculus lower pole right kidney. There is no hydronephrosi s. Ureters are not dilated. Abdominal aorta is atheromatous. There is no retroperitoneal adenopathy. Bladder distends smoothly. There is no inguinal hernia. There is no free fluid in the pelvis. There is no evidence of pelvic mass. There is no sign of a bowel obstruction. There are scattered div erticula in the large bowel. There is very minimal fat stranding in the left paracolic gutter. I see no intestinal wall thickening. There is no mesenteric edema or ascites. There is multilevel spondylot ic changes in the lumbar spine. There is 15% mild compression deformity of the superior endplate of L 1 that appears old. Bony pelvis appears intact.THERE IS MILD L2-3 BONY SPINAL STENOSIS DUE TO FACET A RTHROPATHY. IMPRESSION: There is very minimal stranding in the left paracolic gutter that could be related to old inflammator y process. I do not see definite sign of wall thickening or pericolic fat stranding to suggest acute diverticulitis. Mild L2-3 bony spinal stenosis. Scarring and atelectasis at the posterior lung bases.
--- NOTE | 2018-12-04 19:09 | CT ---
EXAMINATION TYPE: CT brain wo con DATE OF EXAM: 12/04/2018 COMPARISON: 09/07/2018 HISTORY: Confusion CT DLP: 1068.4 mGycm Automated exposure control for dose reduction was used. FINDINGS: There is cerebral cortical atrophy. There is no mass effect nor midline shift. There is no sign of in tracranial hemorrhage. The calvarium is intact. There is some debris in the external auditory canals bilaterally. IMPRESSION: CEREBRAL ATROPHY. NO ACUTE INTRACRANIAL ABNORMALITY. NO CHANGE.
[2018-12-04 20:42] VITALS: BP 162/90; PULSE 78; RESP 16
== END 2018-12-04 21:07 | disposition other institution (70) ==
LOC: EC 13:53 → SUPCPDRO 13:53 → EC 21:07
DX: E86.0 Dehydration (principal); R55 Syncope and collapse; N39.0 Urinary tract infection, site not specified; F03.90 Unspecified dementia, unspecified severity, without behavioral disturbance, psychotic disturbance, mood disturbance, and anxiety; E11.9 Type 2 diabetes mellitus without complications; I10 Essential (primary) hypertension; E78.5 Hyperlipidemia, unspecified; I25.2 Old myocardial infarction; F32.9 Major depressive disorder, single episode, unspecified; Z79.82 Long term (current) use of aspirin; Z79.84 Long term (current) use of oral hypoglycemic drugs; Z79.899 Other long term (current) drug therapy; Z95.5 Presence of coronary angioplasty implant and graft; Z90.710 Acquired absence of both cervix and uterus
CPT/HCPCS: 36415; 93005; 80053; 82140; 82150; 83690; 84484; 85025; 81001; 87086; 74018; 70450; 74176; 99285; 96360; J0696